=== PATIENT | female | born 1990 | race Caucasian/White ===

== ENCOUNTER 2023-11-06 15:39 | Outpatient (AMB) | payer OTHER, SELFPAY ==
--- NOTE | 2023-11-06 15:50 | A.OFFPC_ITS ---
Vital Signs 11/06/23 16:00 Height 5 ft 3.39 in Weight 256 lb 4 oz BMI 44.8 BP 128/70 Blood Pressure Location Rt brachial Position Sitting Pulse 116 H Pulse Source Pulse Oximeter Temp 98.1 F Temp Source Oral Pulse Oximetry (%) 98 Oxygen Delivery Method Room Air Intake Visit Reasons: Transfer from [facility]/ Intake Note: New patient visit. 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 Required: No Accompanied by: Father Is last menstrual period known: No Post menopausal: No Patient : No Tobacco use date assessed: 11/06/23 Dental Screening Dental Screen Date: 11/06/23 Did you have a dental visit in the last 12 months?: Yes Did you have a dental problem in the last 6 months where you did not have access to dental care?: No Was dental information given to patient?: Patient has dentist HPI HPI Comments History of Present Illness Details 33 year old female with a past medical h istory of cognitive impairment, depression, anxiety, insomnia, recurrent sinus issues, allergies [facility]: Her mother in 2022. This resulted in a great amount of ptsd, grief thereafter. Following with therapist at [facility], Felicita Hogan. Has not tolerated or had ineffective response to multiple psych medications. Currently on prozac 60mg, wellbutrin, trazodone, buspirone. Still having some issues with low motivation, depressive symptoms. Not currently following with a psychiatrist Patient notes chronic sinus congestion, post nasal drip, ear fullness. She is currently taking cetirizine daily. Sinus pressure increased over the past week. She follows with heat transfer technician. She is on OCP. She has a boyfriend who she is staying with frequently. Her stepfather accompanies her. [facility] Medical History (Updated 11/08/23 @ 11:06 by Lainey Hilton MD) Depression Panic attack GERD (gastroesophageal reflux disease) Headache Sinusitis Anxiety Surgical History (Updated 11/06/23 @ 16:10 by Suzanne Robert CMA) Hx of cholecystectomy Family History (Updated 11/06/23 @ 16:12 by Suzanne Robert CMA) Mother HTN (hypertension) Hypercholesteremia Father Hypercholesteremia Paternal Grandmother Hypercholesteremia Other Prediabetes Social History Housing: House Patient Tobacco Use Status: Never used Tobacco e-Cigarette/Vaping Use: Never Used Second Hand Smoke Exposure: No service: No Current occupational status: unemployed (Starting job 11/30/23 at the [employer] ) Cognitive needs: No Hearing needs: No Vision needs: Yes Questionnaire PHQ-9 Over the last 2 weeks, how often have you been bothered by any of the following problems? 1. Little interest or pleasure in doing things: more than half the days 2. Feeling down, depressed, or hopeless: several days 3. Trouble falling or staying asleep, or sleeping too much: several days 4. Feeling tired or having little energy: not at all 5. Poor appetite or overeating: not at all 6. Feeling bad about yourself - or that you are a failure or have let yourself or your family down: several days 7. Trouble concentrating on things, such as reading the newspaper or watching television: not at all 8. Moving or speaking so slowly that other people could have noticed. Or the opposite - being so fidgety or restless that you have been moving around a lot more than usual: not at all 9. Thoughts that you would be better off or of hurting yourself in some way: not at all Total score: 5 Depression Screening Interpretation: Positive Depression Screening Done: Yes 75962 - PHQ-9 Billing: Yes Source: Developed by Drs. Wilson Hernández, Tammy Sierra, João Shi and colleagues, with an educational antoine from [employer]. Thrive Questionnaire Date Thrive assessed: 11/06/23 I am a: Patient What is your living situation today?: I have a steady place to live Within the past 12 months, did the food you bought not last and you didn't have the money to get more?: Never true Within the past 12 months, did you worry whether your food would run out before you got money to buy more?: Never true Do you have trouble paying for medicines?: No Do you have trouble getting transportation to medical appointments?: No Do you have trouble paying your heating and electricity bill?: No Do you have trouble taking care of your child, family member or friend?: No Do you have trouble with day-to-day activities such as bathing, preparing meals, shopping, managing finances, etc.?: No Are you currently unemployed and looking for a job?: No Are you interested in more education?: No Please select the resources that you would like help with: None Currently or been in a relationship where the following occur: no concerns reported THRIVE Score: 0 AUDIT C Alcohol Use Questionnaire (AUDIT-C) 1. How often do you have a drink containing alcohol?: Monthly or less 2. How many drinks containing alcohol do you have on a typical day when you are drinking?: 1 or 2 3. How often do you have six or more drinks on one occasion?: Never Total Score: 1 CHIARA-7 AMB Questionnaire CHIARA-7 Date CHIARA - 7 assessed: 11/06/23 Feeling nervous, anxious, or on edge: 3 = Nearly every day Not being able to stop or control worryin = Several days Worrying too much about different things: 1 = Several days Trouble relaxin = Several days Being so restless that it is hard to sit still: 1 = Several days Becoming easily annoyed or irritable: 0 = Not at all Feeling afraid as if something awful might happen: 0 = Not at all Total CHIARA-7 score (0-4 normal; 5-9 mild; 10-14 moderate; 15-21 severe): 7 Source: Developed by Drs. Wilson Hernández, Tammy Sierra, João Shi and colleagues, with an educational antoine from [employer]. CHIARA-7 Assessment Billing CHIARA-7 Assessment Tool: CHIARA-7 Assessment 92420 Review of Systems Const Details: see HPI Physical exam (Primary Care) Vital Signs: Last Vital Signs Temp 98.1 F 11/06/23 16:00 Pulse 116 H 11/06/23 16:00 BP 128/70 11/06/23 16:00 Pulse Ox 98 11/06/23 16:00 Oxygen Delivery Method Room Air 11/06/23 16:00 PHYSICAL EXAM: GENERAL: Overweight, alert, oriented. EYES: EOMI. Anicteric. HENT: Moist mucous membranes. No scleral icterus. No cervical lymphadenopathy. LUNGS: Clear to auscultation bilaterally. CARDIOVASCULAR: Regular rate and rhythm. No murmur. No JVD. ABDOMEN: Soft, non-tender +bs EXTREMITIES: No edema. Non-tender. SKIN: No rashes or lesions. Warm. NEUROLOGIC: No focal neurological deficits. PSYCHIATRIC: Cooperative. Appropriate mood and affect BMI result Body Mass Index 44.8 Tobacco/Smoking Status: Tobacco use Status Tobacco use date assessed 11/06/23 11/06/23 16:03 Patient Tobacco Use Status Never used Tobacco 11/06/23 16:03 e-Cigarette/Vaping Use Never Used 11/06/23 16:03 PHQ-9: PHQ-9 Score PHQ-9: Total score 5 11/08/23 11:06 Depression Screening Interpretation: Positive Thrive Assessment: Date of Thrive Assessment Date Thrive assessed 11/06/23 11/06/23 16:14 Currently or been in a relationship where the following occur: no concerns reported Assessment and Plan Assessment & Plan (1) Anxiety: Comment: Depression & anxiety improved but not optimal. Will add abilify. Referral placed to psychiatry Code(s): F41.9 - Anxiety disorder, unspecified (2) Panic attack: Code(s): F41.0 - Panic disorder [episodic paroxysmal anxiety] (3) Depression: Code(s): F32.A - Depression, unspecified Qualifiers: Depression Type: unspecified Qualified Code(s): F32.A - Depression, unspecified Orders: Referrals Psychiatry Referral F32.A - Depression, unspecified, F41.0 - Panic disorder [episodic paroxysmal anxiety], F41.9 - Anxiety disorder, unspecified, R41.89 - Other symptoms and signs involving cognitive functions and awareness Medications: New azithromycin 500 mg PO DAILY 5 tabs 0RF 5 days aripiprazole (Abilify) 5 mg PO DAILY 90 tabs 3RF 90 days fluticasone propionate 50 mcg/actuation (Allergy Relief (fluticasone)) administer into each nostril 2 sprays intranasal DAILY 16 grams 3RF Coding Level of Care Code Tele Est Pt Level 5 (30397) Diagnoses Anxiety F41.9 Panic attack F41.0 Depression, unspecified depression type F32.A Depression Type: unspecified Additional Codes CHIARA-7 Assessment Billing - CHIARA-7 Assessment Tool: CHIARA-7 Assessment [id number] ([id number])
[2023-11-06 16:00] VITALS: BP 128/70; PULSE 116; TEMP 36.7; O2SAT 98; BMI 44.8
== END 2023-11-06 16:49 | disposition home or self-care (01) ==
PROVIDERS: PCP Internal Medicine; Visit Provider Internal Medicine
DX: F41.9 Anxiety disorder, unspecified (principal); F41.0 Panic disorder [episodic paroxysmal anxiety]; F32.A Depression, unspecified
CPT/HCPCS: 96127; 99214

== ENCOUNTER 2024-02-19 10:14 | Outpatient (AMB) | payer OTHER, SELFPAY ==
--- NOTE | 2024-02-19 10:16 | MHC.PC.OV ---
Vital Signs 02/19/24 10:20 Height 5 ft 3.39 in Weight 281 lb BMI 49.2 BP 108/62 Blood Pressure Location Lt brachial Position Sitting Respiration 12 Pulse 95 Pulse Source Pulse Oximeter Pulse Oximetry (%) 95 Oxygen Delivery Method Room Air Intake Visit Reasons: Follow up PE Intake Note: Patient is here for a follow up and is accompanied by her father. Patient has a concern for a small bite on her right foot. Patient has a small dog and has not been to any wooded areas. Patients father reports there is paperwork needed for DDS. Industrial Sales Representative Required: No Accompanied by: Self / Same As Patient Allergies No Known Allergies Allergy (Verified 02/19/24 10:26) Tobacco use date assessed: 11/06/23 Dental Screening Dental Screen Date: 11/06/23 HPI HPI Comments History of Present Illness Details 33 year old female with a past medical history of cognitive impairment, depression, anxiety, insomnia, recurrent sinus issues, allergies presenting for follow up : Her mother in 2022. This resulted in a great amount of ptsd, grief thereafter. Following with therapist at [facility], Felicita Hogan. Has not tolerated or had ineffective response to multiple psych medications. Currently on prozac 60mg, wellbutrin, trazodone, buspirone. Still having some issues with low motivation, depressive symptoms. 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 Her step father who has been taking care of her since her mother passed has paperwork for DDS. She follows with corporate meeting planner. She is on OCP. ROS CONSTITUTIONAL: Denies weight loss, fever and chills. HEENT: Denies changes in vision and hearing. RESPIRATORY: Denies SOB and cough. CV: Denies palpitations and CP GI: Denies abdominal pain, nausea, vomiting and diarrhea. : Denies dysuria and urinary frequency. MSK: Denies new myalgia and joint pain. SKIN: bug bite foot NEUROLOGICAL: Denies headache PSYCHIATRIC: Denies recent changes in mood. PHYSICAL EXAM: GENERAL: Alert and oriented x 3. NAD EYES: EOMI. Anicteric. HENT: Moist mucous membranes. No scleral icterus. No cervical lymphadenopathy. LUNGS: Clear to auscultation bilaterally. CARDIOVASCULAR: Regular rate and rhythm. No murmur. No JVD. ABDOMEN: Soft, non-tender +bs EXTREMITIES: No edema. Non-tender. SKIN: small insect bite without surrounding erythema or warmgth right foot. NEUROLOGIC: No focal neurological deficits. CN II-XII grossly intact PSYCHIATRIC: Cooperative. Appropriate mood and affect. [facility] Medical History (Updated 02/19/24 @ 13:12 by Lainey Hilton MD) Depression Panic attack GERD (gastroesophageal reflux disease) Headache Sinusitis Anxiety Surgical History (Updated 11/06/23 @ 16:10 by Suzanne Robert CMA) Hx of cholecystectomy Family History (Updated 11/06/23 @ 16:12 by Suzanne Robert CMA) Mother HTN (hypertension) Hypercholesteremia Father Hypercholesteremia Paternal Grandmother Hypercholesteremia Other Prediabetes Social History Housing: House Patient Tobacco Use Status: Never used Tobacco e-Cigarette/Vaping Use: Never Used Second Hand Smoke Exposure: No service: No Current occupational status: unemployed (Starting job 11/30/23 at the [employer] ) Cognitive needs: No Hearing needs: No Vision needs: Yes Questionnaire PHQ-9 Over the last 2 weeks, how often have you been bothered by any of the following problems? 1. Little interest or pleasure in doing things: not at all 2. Feeling down, depressed, or hopeless: more than half the days 3. Trouble falling or staying asleep, or sleeping too much: not at all 4. Feeling tired or having little energy: not at all 5. Poor appetite or overeating: not at all 6. Feeling bad about yourself - or that you are a failure or have let yourself or your family down: several days 7. Trouble concentrating on things, such as reading the newspaper or watching television: not at all 8. Moving or speaking so slowly that other people could have noticed. Or the opposite - being so fidgety or restless that you have been moving around a lot more than usual: not at all 9. Thoughts that you would be better off or of hurting yourself in some way: not at all Total score: 3 Depression Screening Interpretation: Negative (neg) Depression Screening Done: Yes Source: Developed by Drs. Wilson Hernández, Tammy Sierra, João Shi and colleagues, with an educational antoine from [employer]. Thrive Questionnaire Date Thrive assessed: 02/17/24 I am a: Patient What is your living situation today?: I have a steady place to live Within the past 12 months, did the food you bought not last and you didn't have the money to get more?: Never true Within the past 12 months, did you worry whether your food would run out before you got money to buy more?: Sometimes True Do you have trouble paying for medicines?: I choose not to answer this question Do you have trouble getting transportation to medical appointments?: No Do you have trouble paying your heating and electricity bill?: No Do you have trouble taking care of your child, family member or friend?: No Do you have trouble with day-to-day activities such as bathing, preparing meals, shopping, managing finances, etc.?: No Are you currently unemployed and looking for a job?: Yes Are you interested in more education?: No Please select the resources that you would like help with: Job search/training Currently or been in a relationship where the following occur: No concerns reported THRIVE Score: 1 AUDIT C Alcohol Use Questionnaire (AUDIT-C) 1. How often do you have a drink containing alcohol?: Never Total Score: 0 CHIARA-7 AMB Questionnaire CHIARA-7 Date CHIARA - 7 assessed: 11/06/23 Feeling nervous, anxious, or on edge: 1 = Several days Not being able to stop or control worryin = Several days Worrying too much about different things: 2 = More than half the days Trouble relaxin = Several days Being so restless that it is hard to sit still: 0 = Not at all Becoming easily annoyed or irritable: 0 = Not at all Feeling afraid as if something awful might happen: 0 = Not at all Total CHIARA-7 score (0-4 normal; 5-9 mild; 10-14 moderate; 15-21 severe): 5 Source: Developed by Drs. Wilson Hernández, Tammy Sierra, João Shi and colleagues, with an educational antoine from [employer]. Physical exam (Primary Care) Vital Signs: Last Vital Signs Pulse 95 02/19/24 10:20 Resp 12 02/19/24 10:20 BP 108/62 02/19/24 10:20 Pulse Ox 95 02/19/24 10:20 Oxygen Delivery Method Room Air 02/19/24 10:20 BMI result Body Mass Index 49.2 Tobacco/Smoking Status: Tobacco use Status Tobacco use date assessed 11/06/23 02/19/24 10:16 Patient Tobacco Use Status Never used Tobacco 02/19/24 10:16 e-Cigarette/Vaping Use Never Used 02/19/24 10:16 PHQ-9: PHQ-9 Score PHQ-9: Total score 3 02/19/24 13:08 Depression Screening Interpretation: Negative (neg) Thrive Assessment: Date of Thrive Assessment Date Thrive assessed 02/17/24 02/19/24 10:16 Currently or been in a relationship where the following occur: No concerns reported Assessment and Plan Assessment & Plan (1) Depression: Code(s): F32.A - Depression, unspecified Qualifiers: Depression Type: unspecified Qualified Code(s): F32.A - Depression, unspecified Plan: stable. managing with current medications (2) Anxiety: Code(s): F41.9 - Anxiety disorder, unspecified Plan: [facility] (3) Cognitive and neurobehavioral dysfunction: Code(s): F09 - Unspecified mental disorder due to known physiological condition Plan: Step dad managing financial affairs Paperwork completed for DDS Orders: Orders Lipid Panel Today F32.A - Depression, unspecified, F41.0 - Panic disorder [episodic paroxysmal anxiety], F41.9 - Anxiety disorder, unspecified, Z13.228 - Encounter for screening for other metabolic disorders TSH reflex Free T4 Today F32.A - Depression, unspecified, F41.0 - Panic disorder [episodic paroxysmal anxiety], F41.9 - Anxiety disorder, unspecified, Z13.228 - Encounter for screening for other metabolic disorders Complete Blood Count Auto Diff Today F32.A - Depression, unspecified, F41.0 - Panic disorder [episodic paroxysmal anxiety], F41.9 - Anxiety disorder, unspecified, Z13.228 - Encounter for screening for other metabolic disorders Comprehensive Met. Panel Today F32.A - Depression, unspecified, F41.0 - Panic disorder [episodic paroxysmal anxiety], F41.9 - Anxiety disorder, unspecified, Z13.228 - Encounter for screening for other metabolic disorders Hemoglobin A1c Today F32.A - Depression, unspecified, F41.0 - Panic disorder [episodic paroxysmal anxiety], F41.9 - Anxiety disorder, unspecified, Z13.228 - Encounter for screening for other metabolic disorders Coding Level of Care Code Est Pt Level 4 (79083) Complex EM visit Add On G2211 Diagnoses Depression, unspecified depression type F32.A Depression Type: unspecified Anxiety F41.9 Cognitive and neurobehavioral dysfunction F09
[2024-02-19 10:20] VITALS: BP 108/62; PULSE 95; RESP 12; O2SAT 95; BMI 49.2
== END 2024-02-19 11:14 | disposition home or self-care (01) ==
PROVIDERS: PCP Internal Medicine; Visit Provider Internal Medicine
DX: F32.A Depression, unspecified (principal); F41.9 Anxiety disorder, unspecified; F09 Unspecified mental disorder due to known physiological condition

== ENCOUNTER → 2024-02-19 10:14 | Outpatient (BNVA) | payer OTHER, SELFPAY | PROVIDERS: PCP Internal Medicine; Visit Provider Internal Medicine | DX: F32.A Depression, unspecified (principal); F41.9 Anxiety disorder, unspecified; F09 Unspecified mental disorder due to known physiological condition | CPT/HCPCS: 99212 ==

== ENCOUNTER 2024-02-19 11:24 | Outpatient (REF) | payer OTHER, SELFPAY ==
[2024-02-19 14:31] LABS: Estimated Average Glucose 103 mg/dL; Hemoglobin A1c % 5.2 % (<6.0)
[2024-02-19 14:32] LABS: Basophils Absolute Auto 0.1 X10*3/uL (0.0-0.2); Basophils Percent Auto 0.6 % (0-2); Eosinophils Absolute Auto 0.3 X10*3/uL (0.0-0.4); MANUAL DIFF FLAG SCAN; Monocytes Absolute Auto 0.7 X10*3/uL (0.1-1.2); PLT CLUMP 1; SCAN SMEAR FLAG 1
[2024-02-19 15:03] LABS: Alanine Aminotransferase 20 U/L (0-31); Alkaline Phosphatase 79 U/L (39-117); Anion Gap 14 (12-20); Aspartate Amino Transferase 20 U/L (5-31); Bilirubin Total 0.3 mg/dL (0.0-1.0); Blood Urea Nitrogen 12 mg/dL (9-16); Calcium 9.8 mg/dL (8.4-10.2); Carbon Dioxide 24 mmol/L (22-29); Chloride 102 mmol/L (96-108); Cholesterol 234 mg/dL (<200); Estimated Glomerular Filt Rate > 60; Glucose Random 89 mg/dL (60-115); HDL Cholesterol 67 mg/dL (>40); LDL Cholesterol Calculated 145 mg/dL (<100); Potassium 4.4 mmol/L (3.3-5.1); Sodium 136 mmol/L (135-145); TSH reflex Free T4 0.52 uIU/mL (0.32-4.0); Total Protein 7.8 g/dL (6.5-8.0); Triglycerides 113 mg/dL (<150)
[2024-02-19 16:09] LABS: Imm Gran Abs Auto 0.03 X10*3/uL (0.00-0.03); Imm Gran Pct Auto 0.3 % (0.0-0.4); Mean Platelet Volume 10.4 fL (9.4-12.3)
[2024-02-19 16:11] LABS: Eosinophils Percent Auto 2.4 % (0-4); Hematocrit 40.9 % (37.0-47.0); Lymphocytes Absolute Auto 3.3 X10*3/uL (1.2-4.9); Lymphocytes Percent Auto 27.5 % (20-40); Mean Corpuscular HGB Conc 31.8 g/dl (31.0-35.0); Mean Corpuscular Hemoglobin 26.5 pg (27.0-33.0); Mean Corpuscular Volume 83.5 fL (80.0-98.0); Monocytes Percent Auto 6.1 % (2-11); Neutrophils Absolute Auto 7.5 x10*3/uL (2.0-8.3); Neutrophils Percent Auto 63.1 % (45-73); Platelet Count 354 X10*3/uL (160-400); Red Cell Distribution Width 13.8 % (11.0-16.0); White Blood Count 11.9 X10*3/uL (4.8-10.8)
[2024-02-19 16:14] LABS: SLIDE REVIEW VERIFIED
== END 2024-02-19 11:25 | disposition home or self-care (01) ==
LOC: HO.WFDLDS 11:24
PROVIDERS: Visit Provider Internal Medicine
DX: F41.9 Anxiety disorder, unspecified (principal); F32.A Depression, unspecified; F41.0 Panic disorder [episodic paroxysmal anxiety]; Z13.228 Encounter for screening for other metabolic disorders; Z13.1 Encounter for screening for diabetes mellitus
CPT/HCPCS: 36415; 80053; 80061; 83036; 84443; 85025

== ENCOUNTER 2024-09-27 15:04 | Outpatient (AMB) | payer OTHER, SELFPAY ==
--- NOTE | 2024-09-27 15:40 | MHC.PC.OV ---
Vital Signs 09/27/24 15:41 Height 5 ft 3.39 in Weight 313 lb 9 oz BMI 54.9 BP 112/76 Blood Pressure Location Rt brachial Position Sitting Respiration 16 Pulse 88 Pulse Source Pulse Oximeter Pulse Oximetry (%) 97 Oxygen Delivery Method Room Air Intake Visit Reasons: Med review f/u Intake Note: Medication follow up Allergies No Known Allergies Allergy (Verified 09/27/24 15:42) Tobacco use date assessed: 09/27/24 Dental Screening Dental Screen Date: 09/27/24 Did you have a dental visit in the last 12 months?: Yes Did you have a dental problem in the last 6 months where you did not have access to dental care?: No Was dental information given to patient?: Patient has dentist HPI HPI Comments History of Present Illness Details 33 year old female with a past medical history of cognitive impairment, depression, anxiety, insomnia, recurrent sinus issues, allergies presenting for follow up BH: Her mother in 2022. This resulted in a great amount of ptsd, grief thereafter. Following with therapist at [facility], Felicita Hogan. Reports stable on current medications. Has not tolerated or had ineffective response to multiple psych medications. She moved back from [place] where she was living with her boyfriend and his 15 year old son. Her step father who has been taking care of her since her mother passed has paperwork for DDS. She follows with breakfast host. She is on OCP. ROS CONSTITUTIONAL: Denies weight loss, fever and chills. HEENT: Denies changes in vision and hearing. RESPIRATORY: Denies SOB and cough. CV: Denies palpitations and CP GI: Denies abdominal pain, nausea, vomiting and diarrhea. : Denies dysuria and urinary frequency. MSK: Denies new myalgia and joint pain. SKIN: bug bite foot NEUROLOGICAL: Denies headache PSYCHIATRIC: Denies recent changes in mood. PHYSICAL EXAM: GENERAL: Alert and oriented x 3. NAD EYES: EOMI. Anicteric. HENT: Moist mucous membranes. No scleral icterus. No cervical lymphadenopathy. LUNGS: Clear to auscultation bilaterally. CARDIOVASCULAR: Regular rate and rhythm. No murmur. No JVD. ABDOMEN: Soft, non-tender +bs EXTREMITIES: No edema. Non-tender. SKIN: small insect bite without surrounding erythema or warmgth right foot. NEUROLOGIC: No focal neurological deficits. CN II-XII grossly intact PSYCHIATRIC: Cooperative. Appropriate mood and affect. [facility] Medical History Depression Panic attack GERD (gastroesophageal reflux disease) Headache Sinusitis Anxiety Surgical History Hx of cholecystectomy Family History Mother HTN (hypertension) Hypercholesteremia Father Hypercholesteremia Paternal Grandmother Hypercholesteremia Other Prediabetes Social History Housing: House Alcohol intake: current Patient Tobacco Use Status: Never used Tobacco e-Cigarette/Vaping Use: Never Used Second Hand Smoke Exposure: No service: No Current occupational status: unemployed Cognitive needs: No Hearing needs: No Vision needs: Yes Questionnaire PHQ-9 Over the last 2 weeks, how often have you been bothered by any of the following problems? 1. Little interest or pleasure in doing things: more than half the days 2. Feeling down, depressed, or hopeless: several days 3. Trouble falling or staying asleep, or sleeping too much: not at all 4. Feeling tired or having little energy: not at all 5. Poor appetite or overeating: not at all 6. Feeling bad about yourself - or that you are a failure or have let yourself or your family down: not at all 7. Trouble concentrating on things, such as reading the newspaper or watching television: not at all 8. Moving or speaking so slowly that other people could have noticed. Or the opposite - being so fidgety or restless that you have been moving around a lot more than usual: not at all 9. Thoughts that you would be better off or of hurting yourself in some way: not at all Total score: 3 Depression Screening Interpretation: Negative Depression Screening Done: Yes 53726 - PHQ-9 Billing: Yes Source: Developed by Drs. Wilson Hernández, Tammy Sierra, João Shi and colleagues, with an educational antoine from [employer]. Thrive Questionnaire Date Thrive assessed: 09/27/24 I am a: Patient What is your living situation today?: I have a steady place to live Within the past 12 months, did the food you bought not last and you didn't have the money to get more?: I choose not to answer this question Within the past 12 months, did you worry whether your food would run out before you got money to buy more?: Often true Do you have trouble paying for medicines?: No Do you have trouble getting transportation to medical appointments?: I choose not to answer this question Do you have trouble paying your heating and electricity bill?: No Do you have trouble taking care of your child, family member or friend?: No Do you have trouble with day-to-day activities such as bathing, preparing meals, shopping, managing finances, etc.?: No Are you currently unemployed and looking for a job?: Yes Are you interested in more education?: No Please select the resources that you would like help with: Job search/training Currently or been in a relationship where the following occur: No concerns reported THRIVE Score: 1 AUDIT C Alcohol Use Questionnaire (AUDIT-C) 1. How often do you have a drink containing alcohol?: Monthly or less 2. How many drinks containing alcohol do you have on a typical day when you are drinking?: 1 or 2 3. How often do you have six or more drinks on one occasion?: Never Total Score: 1 CHIARA-7 AMB Questionnaire CHIARA-7 Date CHIARA - 7 assessed: 09/27/24 Feeling nervous, anxious, or on edge: 0 = Not at all Not being able to stop or control worryin = Not at all Worrying too much about different things: 0 = Not at all Trouble relaxin = Not at all Being so restless that it is hard to sit still: 0 = Not at all Becoming easily annoyed or irritable: 0 = Not at all Feeling afraid as if something awful might happen: 0 = Not at all Total CHIARA-7 score (0-4 normal; 5-9 mild; 10-14 moderate; 15-21 severe): 0 Source: Developed by Drs. Wilson Hernández, Tammy Sierra, João Shi and colleagues, with an educational antoine from [employer]. CHIARA-7 Assessment Billing CHIARA-7 Assessment Tool: CHIARA-7 Assessment 36582 Physical exam (Primary Care) Vital Signs: Last Vital Signs Pulse 88 09/27/24 15:41 Resp 16 09/27/24 15:41 BP 112/76 09/27/24 15:41 Pulse Ox 97 09/27/24 15:41 Oxygen Delivery Method Room Air 09/27/24 15:41 BMI result Body Mass Index 54.9 Tobacco/Smoking Status: Tobacco use Status Tobacco use date assessed 09/27/24 09/27/24 15:47 Patient Tobacco Use Status Never used Tobacco 09/27/24 15:48 e-Cigarette/Vaping Use Never Used 09/27/24 15:48 PHQ-9: PHQ-9 Score PHQ-9: Total score 3 09/27/24 15:47 Depression Screening Interpretation: Negative Thrive Assessment: Date of Thrive Assessment Date Thrive assessed 09/27/24 09/27/24 15:47 Currently or been in a relationship where the following occur: No concerns reported Coding Level of Care Code Est Pt Level 3 (84396) Complex EM visit Add On G2211 Diagnoses Cognitive and neurobehavioral dysfunction F09 Anxiety F41.9 Depression, unspecified depression type F32.A Depression Type: unspecified Additional Codes CHIARA-7 Assessment Billing - CHIARA-7 Assessment Tool: CHIARA-7 Assessment 42114 ([id number]) PHQ-9 - 63409 - PHQ-9 Billing: Yes ([id number]) Assessment & Plan Assessment & Plan (1) Cognitive and neurobehavioral dysfunction: Code(s): F09 - Unspecified mental disorder due to known physiological condition Category: Medical (2) Anxiety: Code(s): F41.9 - Anxiety disorder, unspecified Category: Medical (3) Depression: Code(s): F32.A - Depression, unspecified Category: Medical Qualifiers: Depression Type: unspecified Qualified Code(s): F32.A - Depression, unspecified Plan Chronic medical conditions including anxiety, depression and insomnia are stable Her blood pressure is well controlled. She is obese and has gained more weight since last visit. Efforts toward weight loss including exercise and dietary modification Allergies-stable. no recent sinus infections Orders: Orders Hemoglobin A1c 6 Months F09 - Unspecified mental disorder due to known physiological condition, F32.A - Depression, unspecified, F41.9 - Anxiety disorder, unspecified Lipid Panel 6 Months F09 - Unspecified mental disorder due to known physiological condition, F32.A - Depression, unspecified, F41.9 - Anxiety disorder, unspecified Complete Blood Count Auto Diff 6 Months F09 - Unspecified mental disorder due to known physiological condition, F32.A - Depression, unspecified, F41.9 - Anxiety disorder, unspecified Comprehensive Met. Panel 6 Months F09 - Unspecified mental disorder due to known physiological condition, F32.A - Depression, unspecified, F41.9 - Anxiety disorder, unspecified TSH reflex Free T4 6 Months F09 - Unspecified mental disorder due to known physiological condition, F32.A - Depression, unspecified, F41.9 - Anxiety disorder, unspecified
[2024-09-27 15:41] VITALS: BP 112/76; PULSE 88; RESP 16; O2SAT 97; BMI 54.9
== END 2024-09-27 15:58 | disposition home or self-care (01) ==
LOC: HO.HMCFM 15:04
PROVIDERS: PCP Internal Medicine; Visit Provider Internal Medicine
DX: F09 Unspecified mental disorder due to known physiological condition (principal); F41.9 Anxiety disorder, unspecified; F32.A Depression, unspecified

== ENCOUNTER → 2024-09-27 15:04 | Outpatient (BNVA) | payer OTHER, SELFPAY | PROVIDERS: PCP Internal Medicine; Visit Provider Internal Medicine | DX: F41.9 Anxiety disorder, unspecified (principal); F32.A Depression, unspecified | CPT/HCPCS: 96127; 99212 ==

== ENCOUNTER 2025-03-27 10:07 | Outpatient (REF) | payer OTHER, SELFPAY ==
--- OUTSIDE RECORDS SUMMARY | 2025-03-27 14:10 | XMS_ITS | Data Portability ---
Author Organization [place] - [facility], Allergy Address [address] [address] Assessment Encounter Date Assessment Date Assessment LastModified by Organization Details LastModified Time 02/28/2025 02/28/2025 Visit With: Abril West RN Use of Antihistamines: No If yes: Vial Test Change in medications: No If yes Increase in asthma symptoms No Asthma Hx If yes, inhaler use: Reaction to last injections: No If yes: Allergy Symptoms: Other: Missed: Dose Aware of Vial Test Aware: Notes: [email or web address] Not available 02/28/2025 14:39:36 03/08/2025 03/08/2025 Visit With: REBECCA Mcneal Use of Antihistamines: No If yes: Vial Test Change in medications: No If yes Increase in asthma symptoms If yes, inhaler use: Reaction to last injections: No If yes: Allergy Symptoms: Other: Missed: Dose Aware of Vial Test Aware: Notes: [email or web address] Not available 03/08/2025 14:04:57 03/14/2025 03/14/2025 Visit With: Maude Orellana [place] Use of Antihistamines: No If yes: Vial Test Change in medications: No If yes Increase in asthma symptoms If yes, inhaler use: Reaction to last injections: No If yes: Allergy Symptoms: Other: Missed: Dose Aware of Vial Test Aware: Notes: [email or web address] Not available 03/14/2025 15:14:50 03/21/2025 03/21/2025 Visit With: REBECCA Mcneal Use of Antihistamines: No If yes: Vial Test Change in medications: No If yes Increase in asthma symptoms If yes, inhaler use: Reaction to last injections: Yes If yes: itchy Allergy Symptoms: Other: Missed: Dose Aware of Vial Test Aware: Notes: Not available 03/21/2025 15:38:06 03/24/2025 03/24/2025 Emily Clancy is a 34-year-old female with ongoing allergic symptoms, primarily sneezing. The patient is advised to continue her weekly allergy injections and will be notified when she can transition to every other week. She is instructed to use loratadine as needed for sneezing, which she has available at home. No prescription is required at this time. FOLLOW-UP: The patient will continue her allergy injection schedule and will be informed of any changes by the clinic staff. [email or web address] Not available 03/24/2025 10:53:17 Plan of Treatment Reminders Order Date Submit Date Provider Last Modified By Organization Details Last Modified Time Details Appointments [facility]- Allergy f-up 6mon 2025 11:30A M LOUISE SARKAR MD Not available Not available Not available Lab None recorded . Referral None recorded . Procedures None recorded . Surgeries None recorded . Imaging None recorded . Medication Orders None recorded . Patient TargetsNo targets recorded. Patient Instructions Encounter Date Encounter Id Patient Instructions Last Modified By Organization Details Last Modified Time 03/24/2025 [id number] - Continue weekly allergy injections. - Use loratadine as needed for sneezing. [email or web address] Not available 03/24/2025 10:53:17 Please note: Parts of this encounter note have been generated by AI based on audio conversation. Patient consent was required prior to utilizing this technology. Content review was required prior to finalizing the note. [email or web address] Not available 03/24/2025 10:53:17 Reason for Referral None Reported. Problems Name Problem SNOMED Code Status Onset Date Resolution Date Notes Provider Name and Address Organization Details Recorded Time Morbid obesity 027634732 Active 024 LOUISE SARKAR MD [address] [place] [address], [address] [place] [address] - [facility] 10:37:36 Deviated nasal septum 119737460 Active 024 LOUISE SARKAR MD [address], [place], [address], [facility] - [facility] [place] 4 10:37:43 Allergic rhinitis 05817017 Active 024 LOUISE SARKAR MD [address], [place], [address], [facility] - [facility] [place] 4 10:37:49 Pain in face 04153890 Active 024 LOUISE SARKAR MD [address], [place], [address], [facility] - [facility] [place] 4 10:38:46 Perennial allergic rhinitis 670480759 Active 024 CRISSY MCHUGH [facility] [address], [place], [address], [facility] - [facility] 5 15:14:10 Nasal mucosa dry 56442568 Active 025 LOUISE SARKAR MD [address] [facility] [address], [place], [address], [facility] - [facility] 5 10:10:37 Problem Notes None recorded. Procedures Surgical History Date Name Laterality Status Provider Name and Address Organization Details Recorded Time 03/21/20 25 Allergy Immunotherapy Injections completed REBECCA SARKAR 100 [facility],[address], [address], [facility] - [facility] 03/21/2025 15:37:42 03/14/20 25 Allergy Immunotherapy Injections completed CRISSY MCHUGH [facility] [address] [facility] [address] [place] [address], [address], [facility] - [facility] 03/14/2025 15:14:30 03/08/20 25 Allergy Immunotherapy Injections completed CRISSY MCHUGH [facility] [address] [facility] [place] [address] [place] [address], [address], [facility] - [facility] 03/08/2025 14:04:52 02/29/20 25 Allergy Immunotherapy Injections completed ABRIL WEST RN [address], [place], [address], [place] [facility] 02/28/2025 14:40:12 02/22/20 25 Allergy Immunotherapy Injections completed KRISTEL MCNEALA [address], [place], [address], [place] [facility] 02/21/2025 15:47:53 02/15/20 25 Allergy Immunotherapy Injections completed Maude Orellana [address], [place], [address], [place] [facility] 02/14/2025 13:39:14 02/08/20 25 Allergy Immunotherapy Injections completed REBECCA SARKAR [address], [place], [address], [place] [facility] 02/07/2025 15:30:03 02/01/20 25 Allergy Immunotherapy Injections completed ABRIL WEST RN [address], [place], [address], [place] [facility] 01/31/2025 13:40:25 01/25/20 25 Allergy Immunotherapy Injections completed CRISSY MCHUGH Carla [address] [place] [address], [address], [place] [facility] 01/24/2025 13:23:18 01/19/20 25 Allergy Immunotherapy Injections completed CRISSY MCHUGH Carla [address], [place], [address], [place] [facility] 01/18/2025 14:32:21 01/13/20 25 Allergy Immunotherapy Injections active Maude Orellana [address], [place], [address], [place] [facility] 01/12/2025 14:51:09 01/04/20 25 Allergy Immunotherapy Injections completed REBECCA SARKAR [address], [place], [address], [place] [facility] 01/03/2025 15:20:01 12/28/19 25 Allergy Immunotherapy Injections completed CRISSY MCHUGH, RMA [address], [place], [address], [place] [facility] 12/27/2024 10:41:32 12/21/19 25 Allergy Immunotherapy Injections completed ABRIL WEST RN [address], [place], [address], [place] [facility] 12/20/2024 14:04:55 12/14/19 25 Allergy Immunotherapy Injections completed ABRIL WEST RN [address], [place], [address], [place] [facility] 12/13/2024 14:11:51 12/07/19 25 Allergy Immunotherapy Injections completed ABRIL WEST RN [address], [place], [address], [place] [facility] 12/06/2024 13:46:12 11/30/19 25 Allergy Immunotherapy Injections completed ABRIL WEST RN [address], [place], [address], [place] [facility] 11/29/2024 14:00:30 11/23/19 25 Allergy Immunotherapy Injections completed CRISSY MCHUGH, REBECCA [address], [place], [address], [place] [facility] 11/22/2024 14:33:24 11/16/19 25 Allergy Immunotherapy Injections completed REBECCA MCNEAL [address], [place], [address], [place] [facility] 11/15/2024 14:31:47 11/09/19 25 Allergy Immunotherapy Injections completed REBECCA SARKAR [address], [place], [address], [place] [facility] 11/08/2024 14:00:00 11/02/19 25 Allergy Immunotherapy Injections completed ABRIL WEST RN [address], [place], [address], [place] [facility] 11/01/2024 14:20:43 10/26/19 25 Allergy Immunotherapy Injections completed ABRIL WEST RN [address], [place], [address], [place] [facility] 10/25/2024 15:22:03 10/19/19 25 Allergy Immunotherapy Injections completed REBECCA SARKAR [address], [place], [address], [place] [facility] 10/18/2024 12:09:55 10/12/19 25 Allergy Immunotherapy Injections completed CRISSY MCHUGH RMCarla [address], [place], [address], [place] [facility] 10/11/2024 14:19:45 10/05/19 25 Allergy Immunotherapy Injections completed ABRIL WEST RN [address], [place], [address], [place] [facility] 10/04/2024 12:14:45 09/28/19 25 Allergy Immunotherapy Injections completed CRISSY MCHUGH RMCarla [address], [place], [address], [place] [facility] 09/27/2024 14:39:23 09/21/19 25 Allergy Immunotherapy Injections completed REBECCA SARKAR [address], [place], [address], [place] [facility] 09/20/2024 14:23:32 09/14/19 25 Allergy Immunotherapy Injections completed REBECCA SARKAR [address], [place], [address], [place] [facility] 09/13/2024 14:01:28 09/07/19 25 Allergy Immunotherapy Injections completed ABRIL WEST RN [address], [place], [address], [place] [facility] 09/06/2024 14:30:46 08/31/19 25 Allergy Immunotherapy Injections completed REBECCA SARKAR [address], [place], [address], [place] [facility] 08/30/2024 15:04:45 08/24/19 25 Allergy Immunotherapy Injections completed ABRIL WEST RN [address] [place] [address], [address], [place] [facility] 08/23/2024 15:21:12 08/17/19 25 Allergy Immunotherapy Injections completed REBECCA SARKAR [address], [place], [address], [place] [facility] 08/16/2024 14:57:38 08/10/19 25 Allergy Immunotherapy Injections completed REBECCA SARKAR [address], [place], [address], [place] [facility] 08/09/2024 14:04:23 08/03/19 25 Allergy Immunotherapy Injections completed ABRIL WEST RN [address] [place] [address], [address], [place] [facility] 08/02/2024 13:19:03 07/26/19 25 Allergy Immunotherapy Injections completed REBECCA SARKAR [address], [place], [address], [place] [facility] 07/26/2024 13:19:38 07/19/19 25 Allergy Immunotherapy Injections completed ABRIL WEST RN [address] [place] [address], [address], [place] [facility] 07/19/2024 14:38:48 07/12/19 25 Allergy Immunotherapy Injections completed REBECCA SARKAR [address], [place], [address], [place] [facility] 07/12/2024 11:51:11 07/05/19 25 Allergy Immunotherapy Injections completed REBECCA SARKAR [address], [place], [address], [place] [facility] 07/05/2024 13:59:13 06/28/19 25 Allergy Immunotherapy Injections completed REBECCA SARKAR [address], [place], [address], [place] [facility] 06/28/2024 12:00:44 06/21/19 25 Allergy Immunotherapy Injections completed CRISSY MCHUGH RMA [address], [place], [address], [place] [facility] 06/21/2024 13:05:36 06/14/19 25 Allergy Immunotherapy Injections completed TAWANA LUX RMA [address], [place], [address], [place] [facility] 06/14/2024 13:04:05 06/07/19 25 Allergy Immunotherapy Injections completed TAWANA LUX RMA [address], [place], [address], [place] [facility] 06/07/2024 13:55:02 05/31/20 24 Allergy Immunotherapy Injections completed TAWANA LUX RMA [address], [place], [address], [place] [facility] 05/31/2024 11:53:26 05/24/20 24 Allergy Immunotherapy Injections completed TAWANA LUX RMA [address], [place], [address], [place] [facility] 05/24/2024 12:01:50 05/17/20 24 Allergy Immunotherapy Injections completed TAWANA LUX RMA [address], [place], [address], [place] [facility] 05/17/2024 12:05:14 05/10/20 24 Allergy Immunotherapy Injections completed KRISTEL SARKARA [address], [place], [address], [place] [facility] 05/10/2024 13:56:16 05/03/20 24 Allergy Immunotherapy Injections completed ABRIL WEST RN [address], [place], [address], [place] [facility] 05/03/2024 12:08:20 04/26/20 24 Allergy Immunotherapy Injections completed TAWANA LUX RMA [address], [place], [address], [place] [facility] 04/26/2024 13:30:43 04/19/20 Allergy Immunotherapy Injections completed TAWANA LUX, RMA [address], [place], [address], [facility] - [facility] 04/19/2024 13:36:05 04/13/20 Allergy Immunotherapy Injections completed TAWANAHANY LUX, RMA [address], [place], [address], [facility] - [facility] 04/13/2024 11:41:37 04/05/20 Allergy Immunotherapy Injections completed CRISSY MCHUGH, RMA [address], [place], [address], [place] [facility] 04/05/2024 11:38:45 03/28/20 Allergy Immunotherapy Injections completed ABRIL WEST RN [address] [address], [place], [address], [facility] - [facility] 03/28/2024 10:43:37 03/01/20 Allergy Testing-Full completed TAWANA LUX, RMA [address], [place], [address], [facility] - [facility] 03/01/2024 11:37:17 cholecystectomy completed Crystal Ordaz [facility] 09/21/2024 09:45:43 Imaging Results None recorded. Procedure Notes None recorded. Medical Equipment None Reported. Allergies Allergen ID Allergen Name Allergen Category Reaction Reaction Severity Criticality Documentation Date Start Date Code Code System Note Provider Name and Address Organization Details Recorded Time 146428 oxycodone medicatio n Not available Not available Not available 03/24/2025 7804 RxNorm Crystal chacon [facility] 10:36:57 Medications Name Sig Start Date Stop Date Status Note LastModified by Organization Details LastModified Time fluoxetine 40 mg capsule 03/24 completed Not Available Not Available Not Available clonidine HCl 0.1 mg tablet 03/24 completed Not Available Not Available Not Available fluconazole 150 mg tablet 09/21 completed Not Available Not Available Not Available omeprazole 40 mg capsule,del ayed release 09/21 completed Not Available Not Available Not Available bupropion HCl SR 100 mg tablet,12 hr sustained-r elease 03/01 completed Not Available Not Available Not Available nortriptyli ne 25 mg capsule 03/24 completed Not Available Not Available Not Available trazodone 100 mg tablet 03/24 completed Not Available Not Available Not Available trazodone 150 mg tablet 09/21 completed Not Available Not Available Not Available lorazepam 1 mg tablet 2024 active Not Available Not Available Not Avai lable azelastine 137 mcg (0.1 %) nasal spray 09/21 completed Not Available Not Available Not Available epinephrine 0.3 mg/0.3 mL injection, auto-inject or Take 1 auto by injection route for 180 days, for anaphylax is. active Not Available Not Available No t Available ibuprofen 600 mg tablet 03/24 completed Not Available Not Available Not Available fluoxetine 20 mg capsule 09/21 completed Not Available Not Available Not Available fluticasone propionate 50 mcg/actuati on nasal spray,suspe nsion active Not Available Not Available Not Available loratadine 10 mg tablet Take 1 tablet every day by oral route. 2024 active Not Available Not Available Not Avai lable amoxicillin 875 mg-potassiu m clavulanate 125 mg tablet 03/01 completed Not Available Not Available Not Available azithromyci n 500 mg tablet 09/21 completed Not Available Not Available Not Available aripiprazol e 10 mg tablet 09/21 completed Not Available Not Available Not Available aripiprazol e 15 mg tablet 03/24 completed Not Available Not Available Not Available aripiprazol e 5 mg tablet 09/21 completed Not Available Not Available Not Available bupropion HCl XL 300 mg 24 hr tablet, extended release 03/24 completed Not Available Not Available Not Available bupropion HCl XL 150 mg 24 hr tablet, extended release 09/21 completed Not Available Not Available Not Available fluoxetine 60 mg tablet 09/21 completed Not Available Not Available Not Available Xulane 150 mcg-35 mcg/24 hr transdermal patch 09/21 completed Not Available Not Available Not Available Rexulti 0.5 mg tablet 03/24 completed Not Available Not Available Not Available Vitals None Recorded Social History Question Answer Notes LastModified by Organizat ion Details LastModified Time Tobacco Smoking Status Never Smoker Crystal chacon [place] - [facility] 09/21/2024 09:46:04 What Type Of Pension Administrator Do You Use? None [email or web address] Information not available 03/24/2025 Do You Have Any Pets? No [email or web address] Information not available 03/24/2025 Are You Passively Exposed To Smoke? No [email or web address] Information not available 03/24/2025 Are There Any Smokers In Your House? Yes [email or web address] Information not available 03/24/2025 Sex: Unknown Functional Status Question Answer Note LastModified by Organization Details LastModified Time Do you use any illicit or recreational drugs? No [email or web address] Information not available 03/24/2025 Do you or have you ever used any other forms of tobacco or nicotine? No [email or web address] Information not available 03/24/2025 What is your level of alcohol consumption? None [email or web address] Information not available 03/24/2025 What type of noise exposure are you exposed to? [email or web address] Infor mation not available 03/24/2025 Mental Status None recorded. Family History Nothing Reported. Medical History Condition Response Allergies/Hayfever N Heart Problems N Anxiety Y Tonsil Infections N Emphysema N Migraines Y Thyroid Problems N Glaucoma N Depression Y COPD N Developmental Delay N Nasal or Sinus Problems Y Anemia N Immune System Disorder N Anesthesia Complications N Heart Attack ([place]) N Other Skin Condition N Diabetes N Rhinitis N Bleeding Disorder N Food Allergy N Arthritis N Hearing Loss N Hyperlipidemia N Cancer N Stroke N Dementia N Nasal polyps N Asthma N Sleep Disorder N GERD/Reflux N High Cholesterol N Liver Disease N Headaches Y Fibromyalgia N Hypertension N Speech Delay N Kidney Disease N Gynecological HistoryNo gynecological history recorded. Obstetrics History GPAL:G 0 P 0 0 0 0 Past Encounters Encounter ID Performer Location Encounter Start Date Encounter Closed Date Diagnosis/Indication Diagnosis SNOMED-CT Code Diagnosis ICD10 Code Diagnosis IMO Codes Diagnosis Note [id number] LOUISE SANTANA MD [facility] 100 [facility] [place] [address] 02/29/2024 10:12:27 02/29/2024 10:48:31 Morbid obesity 122512109 E66.01 Deviated nasal septum 12 0139349 J34.2 Allergic rhinitis 413086 04 J30.9 Pain in face 10095046 R5 1.9 [id number] TAWANA LUX [facility] Allergy [address] [place] [address],[facility] [address] [place] [address] 03/01/2024 10:22:56 03/01/2024 11:41:03 Allergic rhinitis 07670732 J30.9 LOUISE SANTANA MD [facility] [address] [place] [address] 03/11/2024 14:01:09 03/11/2024 15:04:11 Allergic rhinitis 87826333 J30.89 reviewed with patient and father We also discussed the role of immunother apy. I explained that this is instituted for the most significan t of allergies and involves the introducti on of increasing ly graduated dosages of the appropriat e allergens by subcutaneo us injection to facilitate tolerance. I explained about the likelihood of some improvemen t usually within a three to six month time period provided that the patient is compliant with therapy. It may take substantia lly longer for patients with severe allergy. We spoke about the duration of therapy, which typically lasts from three to five years though at times can be indefinite . We also discussed the risk of anaphylaxi s with therapy. Use of an Epipen discussed. [id number] ABRIL WEST RN Allergy [address] [place] [address] [address] [place] [address] 03/28/2024 10:24:51 03/28/2024 10:44:43 Perennial allergic rhinitis 665153523 J30.89 [id number] CRISSY MCHUGH [facility] Allergy [address] [place] [address],[facility] [address] [place] [address] 04/05/2024 11:11:36 04/05/2024 12:04:53 Perennial allergic rhinitis 354134151 J30.89 [id number] TAWANA LUX [facility] Allergy [address] [place] [address],[facility] [address] [place] [address] 04/13/2024 11:35:37 04/13/2024 13:17:38 Perennial allergic rhinitis 243823206 J30.89 [id number] CRISSY GRIFFIN, RMA Allergy [address] [place] [address],[place] [address] [place] [address] 04/19/2024 12:47:43 04/19/2024 13:58:13 Perennial allergic rhinitis 020885831 J30.89 [id number] TAWANA LUX [facility] Allergy [address] [place] [address],[place] [address] [place] [address] 04/26/2024 12:46:29 04/26/2024 13:31:08 Perennial allergic rhinitis 775359900 J30.89 [id number] ABRIL WEST RN Allergy [address] [place] [address] [address] [place] [address] 05/03/2024 11:43:34 05/03/2024 12:08:54 Perennial allergic rhinitis 324033387 J30.89 [id number] TAWANA LUX [facility] Allergy [address] [place] [address], [address] [place] [address] 05/10/2024 13:32:41 05/10/2024 14:08:00 Perennial allergic rhinitis 552947152 J30.89 [id number] TAWANA LUX [facility] Allergy [address] [place] [address], [address] [place] [address] 05/17/2024 12:04:08 05/17/2024 12:05:30 Perennial allergic rhinitis 205363910 J30.89 [id number] ABRIL WEST RN Allergy [address] [place] [address], [address] [place] [address] 05/24/2024 11:32:58 05/24/2024 12:02:37 Perennial allergic rhinitis 032466212 J30.89 [id number] TAWANA LUX [facility] Allergy [address] [place] [address],[place] [address] [place] [address] 05/31/2024 11:38:54 05/31/2024 12:05:33 Perennial allergic rhinitis [id number] J30.89 [id number] TAWANA LUX [facility] [address] [place] [address],[place] [address] [place] [address] 06/07/2024 12:57:33 06/07/2024 13:56:04 Perennial allergic rhinitis [id number] J30.89 [id number] TAWANA LUX [facility] [address] [place] [address],[place] [address] [place] [address] 06/14/2024 12:51:27 06/14/2024 13:57:07 Perennial allergic rhinitis [id number] J30.89 [id number] CRISSY GABY, [facility] [address] [place] [address],[place] [address] [place] [address] 06/21/2024 12:49:39 06/21/2024 13:06:03 Perennial allergic rhinitis [id number] J30.89 [id number] TAWANA LUX, [facility] [address] [place] [address],[place] [address] [place] [address] 06/28/2024 11:28:50 06/28/2024 12:01:13 Perennial allergic rhinitis [id number] J30.89 [id number] TAWANA LUX [facility] [address] [place] [address], [address] [place] [address] 07/05/2024 13:31:18 07/05/2024 14:02:26 Perennial allergic rhinitis [id number] J30.89 [id number] TAWANA LUX, [facility] [address] [place] [address],[place] [address] [place] [address] 9 07/12/2024 11:38:05 07/12/2024 11:58:45 Perennial allergic rhinitis [id number] J30.89 08361 ABRIL WEST RN [facility] [address] [place] [address],[place] [address] [place] [address] 07/19/2024 13:43:40 07/19/2024 14:39:35 Perennial allergic rhinitis [id number] J30.89 Allergic rhinitis 853455 04 J30.89 23502 TAWANA LUX, [facility] [address] [place] [address],[place] [address] [place] [address] 07/26/2024 13:00:24 07/26/2024 13:21:33 Perennial allergic rhinitis [id number] J30.89 69312 ABRIL WEST RN [facility] [address] [place] [address],[place] [address] [place] [address] 08/02/2024 13:07:41 08/02/2024 13:19:40 Perennial allergic rhinitis [id number] J30.89 Allergic rhinitis 805409 04 J30.89 72459 TAWANA LUX A [facility] [address] [place] [address],[place] [address] [place] [address] 08/09/2024 13:36:26 08/09/2024 14:07:49 Perennial allergic rhinitis [id number] J30.[address] [facility], [facility] All[facility] [address] [place] [address],[place] [address] [place] [address] 08/16/2024 13:23:13 08/16/2024 14:58:30 Perennial allergic rhinitis [id number] J30.89 27562 ABRIL WEST RN [facility] [address] [place] [address],[place] [address] [place] [address] 08/23/2024 15:15:24 08/23/2024 15:21:54 Perennial allergic rhinitis [id number] J30.89 Morbid obesity 787097338 E66.01 99198 TAWANA LUX [facility] [address] [place] [address],[place] [address] [place] [address] 08/30/2024 14:48:45 08/30/2024 15:58:02 Perennial allergic rhinitis [id number] J30.89 [id number] ABRIL WEST RN [facility] [address] [place] [address],[place] [address] [place] [address] 09/06/2024 14:30:11 09/06/2024 14:31:19 Perennial allergic rhinitis [id number] J30.89 [id number] TAWANA LUX [facility] [address] [place] [address],[place] [address] [place] [address] 09/13/2024 13:57:02 09/13/2024 14:02:12 Perennial allergic rhinitis [id number] J30.89 31016 TAWANA LXU A [facility] [address] [facility],[place] [address] [place] [address] 09/20/2024 13:28:40 09/20/2024 14:24:24 Perennial allergic rhinitis [id number] J30.89 [id number] LOUISE SANTANA MD [facility] [address] [place] [address] 09/21/2024 09:34:52 09/21/2024 10:14:56 Allergic rhinitis 84522183 J30.89 . Deviated nasal septum 12 0232971 J34.2 Nasal mucosa dry 8276878 [id number] [facility], [facility] [address] [place] [address], [place] [address] 09/27/2024 14:06:25 09/27/2024 14:39:55 Perennial allergic rhinitis [id number] J30.89 [id number] ABRIL WEST RN [facility] [address] [place] [address], [place] [address] 10/04/2024 11:32:43 10/04/2024 12:15:33 Perennial allergic rhinitis [id number] J30.89 09606 [facility] [address] [place] [address], [place] [address] 10/11/2024 14:07:36 10/11/2024 14:20:27 Perennial allergic rhinitis [id number] J30.89 [id number] TAWANA LUX [facility] [address] [place] [address], [place] [address] 10/18/2024 11:56:55 10/18/2024 12:10:20 Perennial allergic rhinitis [id number] J30.89 15419 TAWAAN LUX [facility] [address] [place] [address], [place] [address] 10/25/2024 13:23:02 10/25/2024 15:22:34 Perennial allergic rhinitis [id number] J30.89 52927 ABRIL WEST RN [facility] [address] [place] [address], [place] [address] 9 11/01/2024 14:04:52 11/01/2024 14:21:02 Perennial allergic rhinitis [id number] J30.89 59548 TAWANA LUX [facility] [address] [place] [address], [place] [address] 11/08/2024 13:33:07 11/08/2024 14:00:43 Perennial allergic rhinitis [id number] J30.[address] [facility], [facility] All[facility] [address] [place], [place] [address] [address] [place] [address] 11/15/2024 14:02:22 11/15/2024 14:32:43 Perennial allergic rhinitis [id number] J30.[address] [facility], A All[facility] [address] [place], [place] [address] [address] [place] [address] 11/22/2024 14:26:20 11/22/2024 14:33:47 Perennial allergic rhinitis [id number] J30.89 07914 ABRIL WEST RN [facility] [address] [place] [address] [address] [place] [address] 11/29/2024 13:56:34 11/29/2024 14:00:56 Perennial allergic rhinitis [id number] J30.89 85640 ABRIL WEST RN [facility] [address] [place], [place] [address] [address] [place] [address] 12/06/2024 13:39:23 12/06/2024 13:46:40 Perennial allergic rhinitis 992299704 J30.89 70820 ABRIL WEST RN [facility] [address] [place], [place] [address] [address] [place] [address] 12/13/2024 13:36:26 12/13/2024 14:12:09 Perennial allergic rhinitis [id number] J30.89 38807 ABRIL WEST RN [facility] [address] [place] [address] [address] [place] [address] 12/20/2024 13:45:10 12/20/2024 14:05:39 Perennial allergic rhinitis [id number] J30.89 05628 TAWANA LUX, [facility] [address] [place] [address] [address] [place] [address] 12/27/2024 10:40:56 12/27/2024 10:42:01 Perennial allergic rhinitis [id number] J30.89 [id number] TAWANA LUX, [facility] [address] [facility],[place] [address] [place] [address] 01/03/2025 15:09:57 01/03/2025 15:20:32 Perennial allergic rhinitis [id number] J30.89 23820 TAWANA JOSE J, [facility] [address] [facility],[place] [address] [place] [address] 01/18/2025 14:15:44 01/18/2025 14:32:50 Perennial allergic rhinitis [id number] J30.89 14750 [facility], [facility] [address] [facility],[place] [address] [place] [address] 01/24/2025 13:10:55 01/24/2025 13:23:50 Perennial allergic rhinitis [id number] J30.89 20973 ABRIL WEST RN [facility] [address] [place] [address], [address] [place] [address] 01/31/2025 13:15:35 01/31/2025 13:41:07 Perennial allergic rhinitis [id number] J30.89 33805 ABRIL WEST RN [facility] [address] [place] [address],[place] [address] [place] [address] 02/07/2025 15:10:00 02/07/2025 15:30:34 Perennial allergic rhinitis [id number] J30.89 [id number] Maude Orellana [facility] [address] [place] [address],[place] [address] [place] [address] 02/14/2025 13:24:15 02/14/2025 13:40:13 Perennial allergic rhinitis [id number] J30.[id number] [facility] All[facility] [address] [place] [address],[place] [address] [place] [address] 02/21/2025 15:22:28 02/21/2025 15:48:20 Perennial allergic rhinitis [id number] J30.89 07424 ABRIL WEST RN [facility] [address] [place] [address],[place] [address] [place] [address] 02/28/2025 14:19:34 02/28/2025 14:40:32 Perennial allergic rhinitis [id number] J30.89 [id number] CRISSY MCHUGH, RMA All[facility] 100 [facility],[place] [address] [facility] [place] [address] 03/08/2025 13:52:57 03/08/2025 14:05:11 Perennial allergic rhinitis [id number] J30.89 05787 Maude Orellana [facility] [address] [facility],[place] [address] [facility] [address] 03/14/2025 14:14:32 03/14/2025 15:15:07 Perennial allergic rhinitis [id number] J30.89 16536 CRISSY MCHUGH, RMA All[facility] 100 [facility],[place] [address] [facility] [place] [address] 03/21/2025 15:14:24 03/21/2025 15:38:26 Perennial allergic rhinitis [id number] J30.89 [id number] LOUISE SANTANA MD [facility] [address] [place] [address] 03/24/2025 10:26:52 03/24/2025 10:56:04 Deviated nasal septum 825413300 J34.2 Perennial allergic rhinitis 984163712 J30.89 474583 Morbid obesity 984481124 E66.01 Health Concerns Section Related Observation LastModified by Organization Detai ls LastModified Time None Recorded Concern Status LastModified by Organization Details LastModified Time None Recorded Advance Directives Directive None Recorded Payers Insurance Date Sequence Insurance Name Policy Number Policy Robles Covered Member ID Robles Member ID Guarantor Name 03/24/2025 1 [facility] - DOS ON OR AFTER 2022 - ONE CARE (MEDICARE REPLACEMENT/AD VANTAGE - HMO) Emily Clancy [id number] Emily Clancy 03/08/2025 1 [place] [employer] Emily Clancy [id number] Emily Petrhonda 03/24/2025 2 [place] [facility] Emily Clancy [id number] Emily Clancy Notes Date Note Type Note Provider Name and Address Organization Details Recorded Time 03/24/2025 text/html Emily Clancy is a 34-year-old female who presents for an Ear, Nose, and Throat evaluation. She has been receiving allergy injections for one year and is currently on a weekly schedule, nearing transition to every other week. She reports no use of allergy medications such as loratadine, cetirizine, or fexofenadine, nor nasal sprays. She experienced a relatively good summer with minimal need for allergy medications but continues to experience sneezing. She denies any use of sleep aids or a history of sleep apnea. She has not undergone testing for sleep apnea and does not wish to pursue it at this time. LOUISE RANDALL MD [address] [place] [address], [phone], [facility] - [facility] 03/24/2025 12:32:47 OBGyn Episode No OBEpisode recorded.
--- OUTSIDE RECORDS SUMMARY | 2025-03-27 14:11 | XMS_ITS | Continuity of Care Document ---
Author Organization [place] - [facility], [facility] Address [address] [place] [address] Assessment Encounter Date Assessment Date Assessment LastModified by Organization Details LastModified Time 03/24/2025 03/24/2025 Emily Clancy is a 34-year-old [...] Organization Details Last Modified Time Details Appointments [facility]- Allergy f-up 6mon 2025 11:30A M LOUISE SARKAR MD Not available Not available Not available Lab None recorded . Referral None recorded . Procedures None recorded . Surgeries None recorded . Imaging None recorded . Medication Orders None recorded . Patient TargetsNo targets recorded. Patient Instructions Encounter Date Encounter Id Patient Instructions Last Modified By Organization Details Last Modified Time 03/24/2025 [id number] - Continue weekly allergy injections. - Use loratadine as needed for sneezing. [email or web address] Not available 03/24/2025 10:53:17 Please note: Parts of this encounter note have been generated by AI based on audio conversation. Patient consent was required prior to utilizing this technology. Content review was required prior to finalizing the note. [email or web address] Not available 03/24/2025 10:53:17 Reason for Referral None Reported. Problems Name Problem SNOMED Code Status Onset Date Resolution Date Notes Provider Name and Address Organization Details Recorded Time Morbid obesity 037979564 Active 024 LOUISE SARKAR MD [address], [place], [address], [facility] - [facility] 4 10:37:36 Deviated nasal septum 038256365 Active 024 LOUISE SARKAR MD [address], [place], [address], [facility] - [facility] 4 10:37:43 Allergic rhinitis 79915583 Active 024 LOUISE SARKAR MD [address], [place], [address], [facility] [place] 4 10:37:49 Pain in face 52569857 Active 024 LOUISE SARKAR MD [address], [place], [address], [facility] 4 10:38:46 Perennial allergic rhinitis 027271605 Active 024 CRISSY MCHUGH, [facility] [address], [place], [address], [facility] - [facility] 5 15:14:10 Nasal mucosa dry 16519002 Active 025 LOUISE SARKAR MD [address], [place], [address], [facility] 5 10:10:37 Problem Notes None recorded. Procedures Surgical History Date Name Laterality Status Provider Name and Address Organization Details Recorded Time 03/21/20 25 Allergy Immunotherapy Injections completed TAWANA LUX, [facility] [address],[facility] [address], [place], [address], [facility] 03/21/2025 15:37:42 03/14/20 25 Allergy Immunotherapy Injections completed CRISSY MCHUGH, RMA [address], [place], [address], [place] [facility] 03/14/2025 15:14:30 03/08/20 25 Allergy Immunotherapy Injections completed CRISSY MCHUGH, RMA [address], [place], [address], [place] [facility] 03/08/2025 14:04:52 02/29/20 25 Allergy Immunotherapy Injections completed ABRIL WEST RN [address], [place], [address], [place] [facility] 02/28/2025 14:40:12 02/22/20 25 Allergy Immunotherapy Injections completed CRISSY MCHUGH, RMA [address] [facility], [place], [address], [place] [facility] 02/21/2025 15:47:53 02/15/20 25 Allergy Immunotherapy Injections completed Maude Orellana [address], [place], [address], [place] [facility] 02/14/2025 13:39:14 02/08/20 25 Allergy Immunotherapy Injections completed REBECCA SARKAR [address], [place], [address], [place] [facility] 02/07/2025 15:30:03 02/01/20 25 Allergy Immunotherapy Injections completed ABRIL WEST RN [address], [place], [address], [place] [facility] 01/31/2025 13:40:25 01/25/20 25 Allergy Immunotherapy Injections completed CRISSY MCHUGH RMA [address], [place], [address], [place] [facility] 01/24/2025 13:23:18 01/19/20 25 Allergy Immunotherapy Injections completed CRISSY MCHUGH, RMA [address], [place], [address], [place] [facility] 01/18/2025 14:32:21 01/13/20 25 Allergy Immunotherapy Injections active Maude Orellana [address], [place], [address], [place] [facility] 01/12/2025 14:51:09 01/04/20 25 Allergy Immunotherapy Injections completed TAWANA LUX, RMA [address], [place], [address], [place] [facility] 01/03/2025 15:20:01 12/28/19 25 Allergy Immunotherapy Injections completed CRISSY MCHUGH, RMA [address], [place], [address], [place] [facility] 12/27/2024 10:41:32 12/21/19 25 Allergy Immunotherapy Injections completed ABRIL WEST RN [address] [place] [address], [address], [place] [facility] 12/20/2024 14:04:55 12/14/19 25 Allergy Immunotherapy Injections completed ABRIL WEST RN [address] [place] [address], [address], [place] [facility] 12/13/2024 14:11:51 12/07/19 25 Allergy Immunotherapy Injections completed ABRIL WEST RN [address] [place] [address], [address], [place] [facility] 12/06/2024 13:46:12 11/30/19 25 Allergy Immunotherapy Injections completed ABRIL WEST RN [address] [place] [address], [address], [place] [facility] 11/29/2024 14:00:30 11/23/19 25 Allergy Immunotherapy Injections completed CRISSY MCHUGH RMA [address], [place], [address], [place] [facility] 11/22/2024 14:33:24 11/16/19 25 Allergy Immunotherapy Injections completed CRISSY MCHUGH RMA [address], [place], [address], [place] [facility] 11/15/2024 14:31:47 11/09/19 25 Allergy Immunotherapy Injections completed REBECCA SARKAR [address], [place], [address], [place] [facility] 11/08/2024 14:00:00 11/02/19 25 Allergy Immunotherapy Injections completed ABRIL WEST RN [address], [place], [address], [place] [facility] 11/01/2024 14:20:43 10/26/19 25 Allergy Immunotherapy Injections completed ABRIL WEST RN [address], [place], [address], [place] [facility] 10/25/2024 15:22:03 10/19/19 25 Allergy Immunotherapy Injections completed REBECCA SARKAR [address] [facility], [place], [address], [place] [facility] 10/18/2024 12:09:55 10/12/19 25 Allergy Immunotherapy Injections completed REBECCA HARRIS [address], [place], [address], [place] [facility] 10/11/2024 14:19:45 10/05/19 25 Allergy Immunotherapy Injections completed ABRIL WEST RN [address] [place] [address], [address], [place] [facility] 10/04/2024 12:14:45 09/28/19 25 Allergy Immunotherapy Injections completed REBECCA HARRIS [address], [place], [address], [place] [facility] 09/27/2024 14:39:23 09/21/19 25 Allergy Immunotherapy Injections completed REBECCA SARKAR [address], [place], [address], [place] [facility] 09/20/2024 14:23:32 09/14/19 25 Allergy Immunotherapy Injections completed REBECCA SARKAR [address], [place], [address], [place] [facility] 09/13/2024 14:01:28 09/07/19 25 Allergy Immunotherapy Injections completed ABRIL WEST RN [address] [place] [address], [address], [place] [facility] 09/06/2024 14:30:46 08/31/19 25 Allergy Immunotherapy Injections completed REBECCA SARKAR [address], [place], [address], [place] [facility] 08/30/2024 15:04:45 08/24/19 25 Allergy Immunotherapy Injections completed ABRIL WEST RN [address], [place], [address], [place] [facility] 08/23/2024 15:21:12 08/17/19 25 Allergy Immunotherapy Injections completed REBECCA SARKAR [address] [place] [address], [address], [place] [facility] 08/16/2024 14:57:38 08/10/19 25 Allergy Immunotherapy Injections completed REBECCA SARKAR [address] [place] [address], [address], [place] [facility] 08/09/2024 14:04:23 08/03/19 25 Allergy Immunotherapy Injections completed ABRIL WEST RN [address] [place] [address], [address], [place] [facility] 08/02/2024 13:19:03 07/26/19 25 Allergy Immunotherapy Injections completed REBECCA SARKAR [address], [place], [address], [place] [facility] 07/26/2024 13:19:38 07/19/19 25 Allergy Immunotherapy Injections completed ABRIL WEST RN [address], [place], [address], [place] [facility] 07/19/2024 14:38:48 07/12/19 25 Allergy Immunotherapy Injections completed REBECCA SARKAR [address], [place], [address], [place] [facility] 07/12/2024 11:51:11 07/05/19 25 Allergy Immunotherapy Injections completed KRISTEL SARKARA [address], [place], [address], [place] [facility] 07/05/2024 13:59:13 06/28/19 25 Allergy Immunotherapy Injections completed TAWANA LUX RMA [address], [place], [address], [place] [facility] 06/28/2024 12:00:44 06/21/19 25 Allergy Immunotherapy Injections completed CRISSY MCHUGH RMA [address], [place], [address], [place] [facility] 06/21/2024 13:05:36 06/14/19 25 Allergy Immunotherapy Injections completed TAWANA LUX RMA [address], [place], [address], [place] [facility] 06/14/2024 13:04:05 06/07/19 25 Allergy Immunotherapy Injections completed TAWANA LUX RMA [address], [place], [address], [place] [facility] 06/07/2024 13:55:02 05/31/20 24 Allergy Immunotherapy Injections completed TAWANA LUX RMA [address], [place], [address], [place] [facility] 05/31/2024 11:53:26 05/24/20 24 Allergy Immunotherapy Injections completed TAWANA LUX RMA [address], [place], [address], [place] [facility] 05/24/2024 12:01:50 05/17/20 24 Allergy Immunotherapy Injections completed TAWANA LUX RMA [address], [place], [address], [place] [facility] 05/17/2024 12:05:14 05/10/20 24 Allergy Immunotherapy Injections completed TAWANA LUX RMA [address], [place], [address], [place] [facility] 05/10/2024 13:56:16 05/03/20 24 Allergy Immunotherapy Injections completed ABRIL WEST RN [address] [place] [address], [address], [place] [facility] 05/03/2024 12:08:20 04/26/20 24 Allergy Immunotherapy Injections completed REBECCA SARKAR [address], [place], [address], [place] [facility] 04/26/2024 13:30:43 04/19/20 24 Allergy Immunotherapy Injections completed REBECCA SARKAR [address] [place] [address], [address], [place] [facility] 04/19/2024 13:36:05 04/13/20 24 Allergy Immunotherapy Injections completed REBECCA SARKAR [address] [place] [address], [address], [place] [facility] 04/13/2024 11:41:37 04/05/20 24 Allergy Immunotherapy Injections completed CRISSY MCHUGH Carla [address] [place] [address], [address], [place] [facility] 04/05/2024 11:38:45 03/28/20 24 Allergy Immunotherapy Injections completed ABRIL WEST RN [address] [place] [address], [address], [place] [facility] 03/28/2024 10:43:37 03/01/20 24 Allergy Testing-Full completed REBECCA SARKAR [address] [place] [address], [address], [place] [facility] 03/01/2024 11:37:17 cholecystectomy completed Crystal Ordaz [place] - [facility] 09/21/2024 09:45:43 Imaging Results None recorded. Procedure Notes None recorded. Medical Equipment None Reported. Allergies Allergen ID Allergen Name Allergen Category Reaction Reaction Severity Criticality Documentation Date Start Date Code Code System Note Provider Name and Address Organization Details Recorded Time 040609 oxycodone medicatio n Not available Not available Not available 03/24/2025 7804 RxNorm Crystal chacon [place] - [facility] 10:36:57 Medications Name Sig Start Date Stop [...] - [facility] 09/21/2024 09:46:04 What Type Of Digital Marketing Lead Do You Use? None [email or web address] Information not available 03/24/2025 Do You Have Any Pets? No [email or web address] Information not available 03/24/2025 Are You Passively Exposed To Smoke? No [email or web address] Information not available 03/24/2025 Are There Any Smokers In Your House? Yes [email or web address] Information not available 03/24/2025 Sex: Unknown Functional Status Question Answer Note LastModified by Organization Details LastModified Time Do you use any illicit or recreational drugs? No [email or web address] Information not available 03/24/2025 Do you or have you ever used any other forms of tobacco or nicotine? No [email or web address] Information not available 03/24/2025 What is your level of alcohol consumption? None [email or web address] Information not available 03/24/2025 What type of noise exposure are you exposed to? [email or web address] Infor mation not available 03/24/2025 Mental Status None recorded. Family History Nothing Reported. Medical History Condition Response Allergies/Hayfever N Heart Problems N Anxiety Y Tonsil Infections N Emphysema N Migraines Y Thyroid Problems N COPD N Depression Y Developmental Delay N Glaucoma N Nasal or Sinus Problems Y Anemia N Immune System Disorder N Anesthesia Complications N Heart Attack ([place]) N Other Skin Condition N Diabetes N Rhinitis N Bleeding Disorder N Food Allergy N Hearing Loss N Arthritis N Hyperlipidemia N Cancer N Stroke N Dementia N Nasal polyps N Asthma N Sleep Disorder N High Cholesterol N GERD/Reflux N Liver Disease N Headaches Y Fibromyalgia N Hypertension N Speech Delay N Kidney Disease N Gynecological HistoryNo gynecological history recorded. Obstetrics History GPAL:G 0 P 0 0 0 0 Past Encounters Encounter ID Performer Location Encounter Start Date Encounter Closed Date Diagnosis/Indication Diagnosis SNOMED-CT Code Diagnosis ICD10 Code Diagnosis IMO Codes Diagnosis Note [id number] ABRIL WEST RN Allergy [address] [place] [address] 02/28/2025 14:19:34 02/28/2025 14:40:32 Perennial allergic rhinitis 015103047 J30.89 [id number] [facility] [address] [place] [address] [place] [address] 03/08/2025 13:52:57 03/08/2025 14:05:11 Perennial allergic rhinitis 134848905 J30.89 [id number] Maude Orellana Allergy [address] [place] [address] 03/14/2025 14:14:32 03/14/2025 15:15:07 Perennial allergic rhinitis 706881117 J30.89 [id number] [facility] [address] [place] [address] [place] [address] 03/21/2025 15:14:24 03/21/2025 15:38:26 Perennial allergic rhinitis 422196847 J30.89 [id number] LOUISE SANTANA MD [facility] [address] [address] 03/24/2025 10:26:52 03/24/2025 10:56:04 Deviated nasal septum 984294190 J34.2 Perennial allergic rhinitis 117997413 J30.89 [id number] Morbid obesity 926415013 E66.01 Health Concerns Section Related Observation LastModified by Organization Detai ls LastModified Time None Recorded Concern Status LastModified by Organization Details LastModified Time None Recorded Payers Encounter Date Sequence Insurance Name Policy Number Policy Robles Covered Member ID Robles Member ID Guarantor Name 03/24/2025 1 [facility] - DOS ON OR AFTER 2022 - ONE CARE (MEDICARE REPLACEMENT/AD VANTAGE - HMO) Emily Clancy [id number] Emily Clancy 03/24/2025 2 [place] [facility] Emily Clancy [id number] Emily Clancy Notes Date Note Type Note [...] it at this time. LOUISE RANDALL MD [address] [place] [address], [phone] 03/24/2025 12:32:47 OBGyn Episode No OBEpisode recorded.
--- OUTSIDE RECORDS SUMMARY | 2025-03-27 14:11 | XMS_ITS | Data Portability ---
Author Organization MARGARET Bates s, [address] Address [address] [place] [address] Care Team Providers Care Business Improvement Manager Name Role Phone [facility] Primary Care Provide r Assessment No assessment recorded. Plan of Treatment Reminders Order Date Submit Date Provider Last Modified By Organization Details Last Modified Time Details Appointments None recorded. Lab urinalysis, dipstick 2022 023 [email or web address] 5 [facility], [address] [place], [address], 3 17:42:57 test, urine 2022 023 [email or web address] 5 [facility], [address] [place] [address], [address], 3 17:42:58 culture, urine 2022 023 [facility], [address] [place] [address], [address], 3 06:07:57 vaginal pathogens panel, JUAN ALBERTO+probe, vaginal fluid 2022 023 [facility], [address] [place] [address], [address], 3 18:06:03 urinalysis, dipstick 2022 023 [email or web address] [facility], [address] [place] [address] [place], [address], 3 11:46:12 test, urine 2022 023 [email or web address], [address] [place], [address], 3 11:46:13 culture, urine 2022 023 [place] [facility] ([facility] [place], [address], 3 20:06:13 vaginal pathogens panel, JUAN ALBERTO+probe, vaginal fluid 2022 023 [place] [facility] ([facility] [address] [place] [address], [address], 3 06:06:11 Referral emergency medicine referral [email or web address] [facility], [address] [place], [address], 3 16:41:42 Procedures None recorded. Surgeries None recorded. Imaging None recorded. Medication Orders Diflucan 150 mg tablet 2022 023 [email or web address] 5 [facility], [address] [place], [address], 3 15:45:36 Flagyl 500 mg tablet 2022 023 [email or web address] 5 [facility], [address] [place], [address], 3 15:45:57 cephalexin 500 mg capsule 2022 023 [email or web address] [facility], [address] [place], [address], 3 16:54:47 polymyxin B sulfate 10,000 unit-trimet hoprim 1 mg/mL eye drops 2022 023 [email or web address] [facility], [address] [place], [address], 3 16:54:54 fluconazole 150 mg tablet 2022 023 [email or web address] 5 [facility], [address] [place], [address], 3 15:45:36 Patient TargetsNo targets recorded. Patient Instructions Encounter Date Encounter Id Patient Instructions Last Modified By Organization Details Last Modified Time 11/14/2022 [id number] Apply warm, mois t compresses over closed eyes 3-4 times per day for 10-15 minutes at a time. Do not return to work until after using the antibiotic drops for 24 hours. If your symptoms do not improve, worsen at any time, or if intense pain, redness, or burning occurs with use of the eye drops, stop the drops immediately and go to the ER. If you wear contact lenses, do not wear them for 2 days. after symptoms resolved. If you have disposable contacts, discard the pair you were wearing and start with a new pair. If they are not disposable, clean thoroughly before using again. Not available 11/14/2022 11:43:27 We recommend you get a repeat urinalysis in 2 weeks to ensure that any abnormalities have resolved. If urine abnormalities persist, you will likely need further testing or treatment. We will contact you within 3 to 5 days with the results of your lab test. If you have not heard back from us within that time frame, please feel free to contact our office regarding your results. Go to the Emergency Department immediately if your symptoms worsen or if you develop new symptoms that concern you. Drink plenty of fluids You should follow-up with your PCP in 4-5 days, or at any time if your condition does not improve or worsens. Any acute change should prompt a visit to the nearest Emergency Department. -Reviewed the various causes of vaginal problems. Reviewed good vulvar/vaginal hygiene and ways to reduce symptoms. Advised to call if treatment is not helpful or if symptoms persist or recur. -Do not wear tight fitting clothes. Do not have sex until your symptoms are gone. Do not use Douches or other irritating products in your vagina as this can make the symptoms worse. - Use condoms for all sexual activity. - If you develop severe back pain or pelvic/abdominal with nausea, fevers, and vomiting you need to go to Emergency room immediately - I recommend complete treatment fully before engaging in intercourse, if you are waiting for a STD test I do not recommend engaging in intercourse until test results have returned. Not available 11/14/2022 11:43:40 12/30/2022 [id number] Take the medication as prescribed. Do not drink any alcohol while taking the medication. See printed instructions. You will be contacted when your lab report returns. Follow-up with your doctor if no improvement in a few days. Seek Emergency Medical evaluation for any worsening symptoms. [email or web address] Not available 12/30/2022 17:45:13 03/24/2023 [id number] You have been advised to go now to the Emergency Department for further evaluation. [facility] ER has been advised of your impending arrival and EMS transport arranged. Further evaluation, treatment and your ultimate disposition will be determined by Emergency Department staff. [email or web address] Not available 03/24/2023 16:34:22 Reason for Referral Emergency Medicine Referral for Depressive disorder Anxiety, depression with vague suicidal ideation Referring Physician: Annamaria Tai, Urgent Care, Encounter Date: 03/24/2023 Results Created Date Observation Date Name Description Value Unit Range Abnormal Flag Note LastModifiedBy Organization Detail LastModifiedTime 11/15/1911/18/2022 URINE CULTU RE, REBECCA NE urine culture, routine FINAL REPORT abnormal Not Available [facility] ([facility]) [address] [facility], [place], [address], 11/18/2022 12:06:29 11/15/19 23 11/18/2022 URINE CULTU RE, ROUTI NE result 1 ENTERO COCCUS FAECAL IS abnormal For Enter ococc us speci es, amino glyco sides (exce pt for high- level resis tance scree mac) , cepha lospo rins, clind amyci n, and trime thopr im-chatterjee lfame thoxa zole are not effec tive clini ping . (CLSI , M100- S26, 2016) 50,00 0-100 ,000 colon y formi ng units per mL Not Available [facility] ([facility]) [address] [place], [address], 11/18/2022 12:06:29 11/15/19 23 11/18/2022 URINE CULTU RE, ROUTI NE antimicrobia l susceptibili ty COMMEN T S = Susce ptibl e; I = Inter media te; R = Resis tant P = Posit sukhi; N = Negat sukhi MICS are expre ssed in micro grams per mL Antib iotic RSLT# 1 RSLT# 2 RSLT# 3 RSLT# 4 Cipro floxa alshay S Levof loxac in S Nitro furan toin S Penic illin S Tetra cycli ne S Vanco mycin S Not Available [facility] ([facility]) [address] [place], [address], 11/18/2022 12:06:29 11/15/19 23 11/16/2022 NUSWA B VAGIN ITIS PLUS (VG+) atopobium vaginae LOW - 0 score Not Available [facility] ([facility]) [address] [place], [address], 11/17/2022 06:06:11 11/15/19 23 11/16/2022 NUSWA B VAGIN ITIS PLUS (VG+) bvab 2 LOW - 0 score Not Available [facility] ([facility]) [address] [place], [address], 11/17/2022 06:06:11 11/15/19 23 11/16/2022 NUSWA B VAGIN ITIS PLUS (VG+) megasphaera 1 LOW - 0 score Calcu late total score by jose alfredo ac the 3 indiv idual bacte rial vagin osis (BV) marke r score s toget her. Total score is inter prete d as follo ws: Total score 0-1: Indic ates the absen ce of BV. Total score 2: Indet richellein ate for BV. Addit ional clini uvaldo data shoul d be evalu ated to estab juan luis a diagn osis. Total score 3-6: Indic ates the prese nce of BV. This test was devel britnied and its perfo rmanc e hussein cteri stics deter mined by [facility]. It has not been clear ed or appro belinda by the Food and Drug Admin istra tion. Not Available [facility] ([facility]) [address] [facility], [place], [address], 11/17/2022 06:06:11 11/15/19 23 11/16/2022 NUSWA B VAGIN ITIS PLUS (VG+) brianne albicans, JUAN ALBERTO POSITI VE negati ve abnormal Not Available [facility] ([facility]) [address] [place], [address], 11/17/2022 06:06:11 11/15/1911/16/2022 NUSWA B VAGIN ITIS PLUS (VG+) brianne glabrata, JUAN ALBERTO NEGATI VE negati ve Not Available [facility] ([facility]) [address] [place], [address], 11/17/2022 06:06:11 11/15/1911/16/2022 NUSWA B VAGIN ITIS PLUS (VG+) trich vag by JUAN ALBERTO NEGATI VE negati ve Not Available [facility] ([facility]) [address] [place], [address], 11/17/2022 06:06:11 11/15/19 23 11/16/2022 NUSWA B VAGIN ITIS PLUS (VG+) chlamydia trachomatis, JUAN ALBERTO NEGATI VE negati ve Not Available [facility] ([facility]) [address] [place], [address], 11/17/2022 06:06:11 11/15/19 23 11/16/2022 NUSWA B VAGIN ITIS PLUS (VG+) neisseria gonorrhoeae, JUAN ALBERTO NEGATI VE negati ve Not Available [facility] ([facility]) [address] [facility], [place], [address], 11/17/2022 06:06:11 11/15/19 23 11/14/2022 urina lysis , dipst ick Unknown Analyte Normal = light yellow Not Available [facility] [address] [place], [address], 11/14/2022 11:07:21 11/15/19 23 11/14/2022 urina lysis , dipst ick Unknown Analyte Yellow Not Available [address] [facility] [address] [place], [address], 11/14/2022 11:07:21 11/15/19 23 11/14/2022 urina lysis , dipst ick Unknown Analyte Normal = clear Not Available [facility] [address] [place], [address], 11/14/2022 11:07:21 11/15/19 23 11/14/2022 urina lysis , dipst ick Unknown Analyte Clear Not Available [address] [facility] [address] [place], [address], 11/14/2022 11:07:21 11/15/19 23 11/14/2022 urina lysis , dipst ick Unknown Analyte Normal = negati ve Not Available [facility] [address] [place], [address], 11/14/2022 11:07:21 11/15/19 23 11/14/2022 urina lysis , dipst ick Unknown Analyte Negati ve Not Available [facility] [address] [place], [address], 11/14/2022 11:07:21 11/15/19 23 11/14/2022 urina lysis , dipst ick Unknown Analyte Normal = Negati ve Not Available [facility] [address] [place], [address], 11/14/2022 11:07:21 11/15/19 23 11/14/2022 urina lysis , dipst ick Unknown Analyte Negati ve Not Available [facility] [address] [place], [address], 11/14/2022 11:07:21 11/15/19 23 11/14/2022 urina lysis , dipst ick Unknown Analyte Normal = Negati ve Not Available [facility] [address] [place], [address], 11/14/2022 11:07:21 11/15/1911/14/2022 urina lysis , dipst ick Unknown Analyte Negati ve Not Available [facility] [address] [place], [address], 11/14/2022 11:07:21 11/15/1911/14/2022 urina lysis , dipst ick Unknown Analyte Normal = 1.010, 1.015, 1.020 Not Available [facility] [address] [place], [address], 11/14/2022 11:07:21 11/15/1911/14/2022 urina lysis , dipst ick Unknown Analyte 1.025 Not Available _ [facility] [address] [place], [address], 11/14/2022 11:07:21 11/15/19 23 11/14/2022 urina lysis , dipst ick Unknown Analyte Normal = Negati ve Not Available [facility] [place], [address], 11/14/2022 11:07:21 11/15/19 23 11/14/2022 urina lysis , dipst ick Unknown Analyte Negati ve Not Available [facility] [place], [address], 11/14/2022 11:07:21 11/15/19 23 11/14/2022 urina lysis , dipst ick Unknown Analyte Normal = 6.5, 7.0, 7.5, 8.0 Not Available [facility] [address] [place], [address], 11/14/2022 11:07:21 11/15/19 23 11/14/2022 urina lysis , dipst ick Unknown Analyte 6.0 Not Available [facility] [address] [place], [address], 11/14/2022 11:07:21 11/15/19 23 11/14/2022 urina lysis , dipst ick Unknown Analyte Normal = Negati ve Not Available [facility] [address] [place], [address], 11/14/2022 11:07:21 11/15/19 23 11/14/2022 urina lysis , dipst ick Unknown Analyte Negati ve Not Available [facility] [address] [place], [address], 11/14/2022 11:07:21 11/15/19 23 11/14/2022 urina lysis , dipst ick Unknown Analyte Normal = 0.2, 1.0 Not Available [facility] [place], [address], 11/14/2022 11:07:21 11/15/19 23 11/14/2022 urina lysis , dipst ick Unknown Analyte 0.2 E.U./d L Not Available [facility] [address] [place], [address], 11/14/2022 11:07:21 11/15/19 23 11/14/2022 urina lysis , dipst ick Unknown Analyte Normal = Negati ve Not Available [facility] [address] [place], [address], 11/14/2022 11:07:21 11/15/19 23 11/14/2022 urina lysis , dipst ick Unknown Analyte Negati ve Not Available [facility] [address] [place], [address], 11/14/2022 11:07:21 11/15/19 23 11/14/2022 urina lysis , dipst ick Unknown Analyte Normal = Negati ve Not Available [facility] [address] [place], [address], 11/14/2022 11:07:21 11/15/19 23 11/14/2022 urina lysis , dipst ick Unknown Analyte Negati ve Not Available [facility] [address] [place], [address], 11/14/2022 11:07:21 11/15/19 23 11/14/2022 pregn rani test, urine Unknown Analyte Normal = Negati ve Not Available [facility] [address] [place], [address], 11/14/2022 11:07:40 11/15/19 23 11/14/2022 pregn rani test, urine Unknown Analyte negati ve Not Available [facility] [address] [place], [address], 11/14/2022 11:07:40 12/31/19 23 01/01/2023 URINE CULTU RE, ROUTI NE urine culture, routine FINAL REPORT Not Available [facility] ([facility]) [address] [facility], [place], [address], 01/01/2023 06:07:57 12/31/19 23 01/01/2023 URINE CULTU RE, ROUTI NE result 1 COMMEN T Mixed uroge nital vania 10,00 0-25, 000 colon y formi ng units per mL Not Available [facility] ([facility]) [address] [facility], [place], [address], 01/01/2023 06:07:57 12/31/19 23 01/01/2023 NUSWA B VAGIN ITIS PLUS (VG+) atopobium vaginae LOW - 0 score Not Available [facility] ([facility]) [address] [facility], [place], [address], 01/01/2023 18:06:03 12/31/19 23 01/01/2023 NUSWA B VAGIN ITIS PLUS (VG+) bvab 2 LOW - 0 score Not Available [facility] ([facility]) [address] [facility], [place], [address], 01/01/2023 18:06:03 12/31/19 23 01/01/2023 NUSWA B VAGIN ITIS PLUS (VG+) megasphaera 1 LOW - 0 score Calcu late total score by jose alfredo g the 3 indiv idual bacte rial vagin osis (BV) marke r score s toget her. Total score is inter prete d as follo ws: Total score 0-1: Indic ates the absen ce of BV. Total score 2: Indet ermin ate for BV. Addit ional clini uvaldo data shoul d be evalu ated to estab juan luis a diagn osis. Total score 3-6: Indic ates the prese nce of BV. This test was devel oped and its perfo rmanc e hussein cteri stics deter mined by [facility]. It has not been clear ed or appro belinda by the Food and Drug Admin istra tion. Not Available [facility] ([facility]) [address] [facility], [place], [address], 01/01/2023 18:06:03 12/31/19 23 01/01/2023 NUSWA B VAGIN ITIS PLUS (VG+) brianne albicans, JUAN ALBERTO NEGATI VE negati ve Not Available [facility] ([facility]) [address] [facility], [place], [address], 01/01/2023 18:06:03 12/31/19 23 01/01/2023 NUSWA B VAGIN ITIS PLUS (VG+) brianne glabrata, JUAN ALBERTO NEGATI VE negati ve Not Available [facility] ([facility]) [address] [facility], [place], [address], 01/01/2023 18:06:03 12/31/19 23 01/01/2023 NUSWA B VAGIN ITIS PLUS (VG+) trich vag by JUAN ALBERTO NEGATI VE negati ve Not Available [facility] ([facility]) [address] [facility], [place], [address], 01/01/2023 18:06:03 12/31/19 23 01/01/2023 NUSWA B VAGIN ITIS PLUS (VG+) chlamydia trachomatis, JUAN ALBERTO NEGATI VE negati ve Not Available [facility] ([facility]) [address] [place], [address], 01/01/2023 18:06:03 12/31/19 23 01/01/2023 NUSWA B VAGIN ITIS PLUS (VG+) neisseria gonorrhoeae, JUAN ALBERTO NEGATI VE negati ve Not Available [facility] ([facility]) [address] [facility], [place], [address], 01/01/2023 18:06:03 12/31/19 23 12/30/2022 urina lysis , dipst ick Unknown Analyte Normal = light yellow Not Available [facility] [address] [place], [address], 12/30/2022 16:57:06 12/31/19 23 12/30/2022 urina lysis , dipst ick Unknown Analyte Yellow Not Available [address] [place] [address] [address] [place], [address], 12/30/2022 16:57:06 12/31/19 23 12/30/2022 urina lysis , dipst ick Unknown Analyte Normal = clear Not Available [facility] [address] [place], [address], 12/30/2022 16:57:06 12/31/19 23 12/30/2022 urina lysis , dipst ick Unknown Analyte Clear Not Available [id number] [place] [address] [address] [place], [address], 12/30/2022 16:57:06 12/31/19 23 12/30/2022 urina lysis , dipst ick Unknown Analyte Normal = negati ve Not Available [facility] [address] [place], [address], 12/30/2022 16:57:06 12/31/19 23 12/30/2022 urina lysis , dipst ick Unknown Analyte Negati ve Not Available [facility] [address] [place], [address], 12/30/2022 16:57:06 12/31/19 23 12/30/2022 urina lysis , dipst ick Unknown Analyte Normal = Negati ve Not Available [facility] [address] [place], [address], 12/30/2022 16:57:06 12/31/19 23 12/30/2022 urina lysis , dipst ick Unknown Analyte Small Not Available [facility] [address] [place], [address], 12/30/2022 16:57:06 12/31/19 23 12/30/2022 urina lysis , dipst ick Unknown Analyte Normal = Negati ve Not Available [facility] [address] [place], [address], 12/30/2022 16:57:06 12/31/19 23 12/30/2022 urina lysis , dipst ick Unknown Analyte Trace Not Available [facility] [address] [place], [address], 12/30/2022 16:57:06 12/31/19 23 12/30/2022 urina lysis , dipst ick Unknown Analyte Normal = 1.010, 1.015, 1.020 Not Available [facility] [address] [place], [address], 12/30/2022 16:57:06 12/31/19 23 12/30/2022 urina lysis , dipst ick Unknown Analyte 1.[address] [facility] [address] [place], [address], 12/30/2022 16:57:06 12/31/19 23 12/30/2022 urina lysis , dipst ick Unknown Analyte Normal = Negati ve Not Available [facility] [address] [place], [address], 12/30/2022 16:57:06 12/31/19 23 12/30/2022 urina lysis , dipst ick Unknown Analyte Trace- intact Not Available [facility] [address] [place], [address], 12/30/2022 16:57:06 12/31/19 23 12/30/2022 urina lysis , dipst ick Unknown Analyte Normal = 6.5, 7.0, 7.5, 8.0 Not Available [facility] [address] [place], [address], 12/30/2022 16:57:06 12/31/19 23 12/30/2022 urina lysis , dipst ick Unknown Analyte 5.[address] [facility] [address] [place], [address], 12/30/2022 16:57:06 12/31/19 23 12/30/2022 urina lysis , dipst ick Unknown Analyte Normal = Negati ve Not Available [facility] [address] [place], [address], 12/30/2022 16:57:06 12/31/19 23 12/30/2022 urina lysis , dipst ick Unknown Analyte 100 mg/dL Not Available [facility] [address] [place], [address], 12/30/2022 16:57:06 12/31/19 23 12/30/2022 urina lysis , dipst ick Unknown Analyte Normal = 0.2, 1.0 Not Available [facility] [address] [place], [address], 12/30/2022 16:57:06 12/31/19 23 12/30/2022 urina lysis , dipst ick Unknown Analyte 0.2 E.U./d L Not Available [facility] [address] [place], [address], 12/30/2022 16:57:06 12/31/19 23 12/30/2022 urina lysis , dipst ick Unknown Analyte Normal = Negati ve Not Available [facility] [address] [place], [address], 12/30/2022 16:57:06 12/31/19 23 12/30/2022 urina lysis , dipst ick Unknown Analyte Negati ve Not Available [facility] [address] [place], [address], 12/30/2022 16:57:06 12/31/19 23 12/30/2022 urina lysis , dipst ick Unknown Analyte Normal = Negati ve Not Available [facility] [address] [place], [address], 12/30/2022 16:57:06 12/31/19 23 12/30/2022 urina lysis , dipst ick Unknown Analyte Negati ve Not Available [facility] [address] [place], [address], 12/30/2022 16:57:06 12/31/19 23 12/30/2022 pregn rani test, urine Unknown Analyte negati ve Not Available [facility] [address] [place], [address], 12/30/2022 17:06:31 Result Notes None recorded. Problems Name Problem SNOMED Code Status Onset Date Resolution Date Notes Provider Name and Address Organization Details Recorded Time Anxiety 57553082 Active HEATHER chacon PA - [facility] 3 11:06:26 Gastroesophage al reflux disease 922881681 Active 2022 HEATHER chacon PA - [facility] 3 11:06:34 Problem Notes None recorded. Procedures Surgical History Date Name Laterality Status Provider Name and Address Organization Details Recorded Time cholecystectomy completed HEATHER YU PA - [facility] 11/14/2022 11:06:06 Imaging Results None recorded. Procedure Notes None recorded. Medical Equipment None Reported. Allergies Allergen ID Allergen Name Allergen Category Reaction Reaction Severity Criticality Documentation Date Start Date Code Code System Note Provider Name and Address Organization Details Recorded Time 142711 Macrobid medicatio n vomiting Not available Not available 11/14/2022 93566 1 RxNorm MARGARET Dillon RA - [facility] 3 11:03:47 Medications Name Sig Start Date Stop Date Status Note LastModified by Organization Details LastModified Time buspirone 5 mg tablet TAKE 1 TABLET BY MOUTH THREE TIMES DAILY active Not Available Not Available No t Available venlafaxine ER 37.5 mg capsule,ext ended release 24 hr 03/24 completed Not Available Not Available Not Available clonidine HCl 0.1 mg tablet active Not Available Not Available Not Available venlafaxine ER 75 mg capsule,ext ended release 24 hr active Not Available Not Available Not Available Apri 0.15 mg-0.03 mg tablet 11/14 completed Not Available Not Available Not Available azithromyci n 250 mg tablet 11/14 completed Not Available Not Available Not Available ibuprofen 800 mg tablet 11/14 completed Not Available Not Available Not Available fluconazole 150 mg tablet Take 1 tablet every day by oral route for 1 day. 03/24 completed Not Available Not Available Not Available sulfamethox azole 400 mg-trimetho prim 80 mg tablet 11/14 completed Not Available Not Available Not Available valacyclovi r 1 gram tablet 11/14 completed Not Available Not Available Not Available sumatriptan 25 mg tablet active Not Available Not Available Not Available prednisone 20 mg tablet 11/14 completed Not Available Not Available Not Available metronidazo le 500 mg tablet Take 1 tablet twice a day by oral route for 7 days. 03/24 completed Not Available Not Available Not Available valacyclovi r 500 mg tablet 11/14 completed Not Available Not Available Not Available ciprofloxac in 500 mg tablet 11/14 completed Not Available Not Available Not Available sulfamethox azole 800 mg-trimetho prim 160 mg tablet 11/14 completed Not Available Not Available Not Available omeprazole 40 mg capsule,del ayed release active Not Available Not Available Not Available lidocaine-p rilocaine 2.5 %-2.5 % topical cream 11/14 completed Not Available Not Available Not Available amoxicillin 875 mg tablet Take 1 tablet every 12 hours by oral route for 7 days. 12/30 completed Not Available Not Available Not Available lorazepam 0.5 mg tablet active Not Available Not Available Not Available cephalexin 500 mg capsule Take 1 capsule every 8 hours by oral route with meals for 7 days. 12/30 completed Not Available Not Available Not Available clotrimazol e-betametha sone 1 %-0.05 % topical cream 11/14 completed Not Available Not Available Not Available polymyxin B sulfate 10,000 unit-trimet hoprim 1 mg/mL eye drops INSTILL 1 DROP INTO AFFECTED EYE(S) BY OPHTHALMI C ROUTE EVERY 6 HOURS x 7 days. 12/30 completed Not Available Not Available Not Available lorazepam 1 mg tablet TAKE 1/2- 1 TABLET BY MOUTH DIRECTED NEEDED ON SOME DAYS FOR ANXIETY OR INSOMNIA. 03/24 completed Not Available Not Available Not Available norethindro ne (contracept sukhi) 0.35 mg tablet TAKE 1 TABLET BY MOUTH EVERY DAY 11/14 completed Not Available Not Available Not Available propranolol 20 mg tablet TAKE 2 TABLETS BY MOUTH ONCE DAILY IF NEEDED. TAKE 30-60 MINUTES PRIOR TO PUBLIC ENGAGEMEN T. active Not Available Not Available No t Available betamethaso ne dipropionat e 0.05 % topical ointment 11/14 completed Not Available Not Available Not Available fluticasone propionate 50 mcg/actuati on nasal spray,suspe nsion 11/14 completed Not Available Not Available Not Available clotrimazol e 1 % topical cream 11/14 completed Not Available Not Available Not Available metoclopram eliseo 10 mg tablet TAKE 1 TABLET BY MOUTH EVERY 6 HOURS 11/14 completed Not Available Not Available Not Available escitalopra m 10 mg tablet active Not Available Not Available Not Available Miconazole- 3 200 mg-2 % (9 gram) vaginal kit USE DIRECTED VAGINALLY DAILY FOR 3 DAYS 11/14 completed Not Available Not Available Not Available lidocaine 5 % topical ointment 11/14 completed Not Available Not Available Not Available Xulane 150 mcg-35 mcg/24 hr transdermal patch APPLY 1 PATCH TOPICALLY TO THE SKIN EVERY WEEK active Not Available Not Available No t Available Vitals Date Recorded Body height Body mass index (BMI) Body weight Pain severity - 0-10 verbal numeric rating [Score] - Reported Respiratory rate Oxygen saturation Oxygen saturation in Arterial blood by Pulse oximetry Heart rate Body temperature Systolic And Diastolic Provider Name and Address Organization Details Last Updated DateTime 3 162.56 cm 48.1 kg/m2 145651. 86 g 6 18 /min 99 % 99 % 76 /min 98.6 [degF] 114/78 mm[Hg] HEATHER ENRIQUEZ RA PA - [facility] 3 11:10:02 Date Recorded Body height Body mass index (BMI) Body weight Pain severity - 0-10 verbal numeric rating [Score] - Reported Body temperature Respiratory rate Heart rate Oxygen saturation Oxygen saturation in Arterial blood by Pulse oximetry Systolic And Diastolic Provider Name and Address Organization Details Last Updated DateTime 3 162.56 cm 48.1 kg/m2 726956. 86 g 8 97.9 [degF] 18 /min 96 /min 96 % 96 % 128/84 mm[Hg] Fatou Sena PA - [facility] 3 16:56:58 Date Recorded Body height Body mass index (BMI) Body weight Oxygen saturation Oxygen saturation in Arterial blood by Pulse oximetry Heart rate Respiratory rate Body temperature Systolic And Diastolic Provider Name and Address Organization Details Last Updated DateTime 3 162.56 cm 46.9 kg/m2 865747. 72 g 99 % 99 % 108 /min 16 /min 98.1 [degF] 123/84 mm[Hg] Trish Banuelos PA - [facility] 3 15:43:57 Social History Question Answer Notes LastModified by Organizat ion Details LastModified Time Tobacco Smoking Status Never Smoker HEATHER chacon PA - [facility] 11/14/2022 11:06:54 Have You Had A Flu Shot This Season? Yes Information not available 03/24/2023 Have You Had Direct Contact, Or Contact During Intimacy, With Monkeypox Rash, Scabs, Or Body Fluids From A Person With Monkeypox? No Information not available 11/14/2022 What Was The Date Of Your Most Recent Tobacco Screening? 03/24/2023 Information not available 03/24/2023 Have You Recently Traveled Abroad? No Information not available 11/14/2022 Sex: Unknown Functional Status Question Answer Note LastModified by Organizat ion Details LastModified Time Do you use any illicit or recreational drugs? No Information not available 11/14/2022 Do you or have you ever used any other forms of tobacco or nicotine? No Information not available 11/14/2022 What is your level of alcohol consumption? None Information not available 11/14/2022 Mental Status None recorded. Family History Relationship Description Onset Age of this Age Resolved Age Notes LastModified by Organization Details LastModified Time Father No current problems or disability Not available 11:06:38 Mother No current problems or disability Not available 11:06:38 Medical History No medical history recorded. Gynecological History Statement/Question Response Date of LMP 12/07/2022 Is there any chance of ? No LMP Unknown Obstetrics History GPAL:G 0 P 0 0 0 0 Immunizations Vaccine Type Date Status Note Provider Nam e and Address Organization Details Recorded Time COVID-19, mRNA, LNP-S, PF, 100 mcg/0.5mL dose or 50 mcg/0.25mL dose 07/27/2020 completed HEATHER YU null, PA - [facility] 11/14/2022 11:02:33 COVID-19, mRNA, LNP-S, PF, 100 mcg/0.5mL dose or 50 mcg/0.25mL dose 08/23/2020 completed HEATHER YU null, PA - [facility] 11/14/2022 11:02:33 COVID-19, mRNA, LNP-S, PF, 100 mcg/0.5mL dose or 50 mcg/0.25mL dose 04/01/2021 completed HEATHER YU null, PA - [facility] 11/14/2022 11:02:33 COVID-19, mRNA, LNP-S, PF, 100 mcg/0.5mL dose or 50 mcg/0.25mL dose 04/26/2021 completed HEATHER GARNER-ALVA null, PA - [facility] 11/14/2022 11:02:33 COVID-19, mRNA, LNP-S, bivalent, PF, 50 mcg/0.5 mL or 25mcg/0.25 mL dose 02/20/2022 completed HEATHER GARNER-ALVA null, PA - [facility] 11/14/2022 11:02:33 Influenza, split virus, quadrivalent, PF 02/01/2022 completed HEATHER GARNER-ALVA null, PA - [facility] 11/14/2022 11:02:33 Influenza, split virus, quadrivalent, PF 02/03/2020 completed HEATHER GARNER-ALVA null, PA - [facility] 11/14/2022 11:02:33 Influenza, split virus, quadrivalent, PF 02/05/2021 completed Fatou Sena null, PA - [facility] 12/30/2022 16:54:35 Influenza, split virus, quadrivalent, PF 02/05/2021 completed HEATHER GARNER-ALVA null, PA - [facility] 11/14/2022 11:02:33 Influenza, split virus, quadrivalent, PF 02/05/2021 completed HEATHER GARNER-ALVA null, PA - [facility] 11/14/2022 11:02:33 Influenza, split virus, quadrivalent, PF 02/05/2021 completed HEATHER GARNER-ALVA null, PA - [facility] 11/14/2022 11:02:33 Influenza, split virus, quadrivalent, PF 02/05/2021 completed Fatou Sena null, PA - [facility] 12/30/2022 16:54:35 Influenza, split virus, quadrivalent, PF 02/05/2021 completed Fatou Sena null, PA - [facility] 12/30/2022 16:54:35 Past Encounters Encounter ID Performer Location Encounter Start Date Encounter Closed Date Diagnosis/Indication Diagnosis SNOMED-CT Code Diagnosis ICD10 Code Diagnosis IMO Codes Diagnosis Note [id number] [facility] [place] [address] 01/13/2018 09:13:08 01/13/2018 09:51:05 [id number] [address] [facility] [address] 03/12/2015 11:50:40 03/12/2015 12:13:22 [id number] [address] [facility] [address] 01/22/2017 11:18:50 01/22/2017 12:02:39 [id number] [address] [facility] [address] 02/24/2018 11:21:15 02/24/2018 12:56:20 [id number] [address] [facility] [place] [address] 02/18/2019 13:36:29 02/18/2019 14:27:00 [id number] [address] [facility] [place] [address] 03/16/2017 09:54:50 03/16/2017 10:11:55 [id number] [address] [facility] [place] [address] 12/29/2018 09:36:33 12/29/2018 09:56:56 [id number] [address] [facility] [place] [address] 05/26/2018 10:33:05 05/26/2018 12:02:51 [id number] [address] [facility] [place] [address] 06/03/2019 09:01:02 06/03/2019 10:02:44 [id number] [address] [facility] [place] [address] 12/10/2016 09:15:34 12/10/2016 09:53:33 [id number] [address] [facility] [place] [address] 02/24/2018 11:16:10 02/24/2018 12:56:10 [id number] [address] [facility] [place] [address] 09/26/2020 09:45:32 09/26/2020 12:03:38 [id number] [address] [facility], [place] [address] 10/16/2017 12:45:48 10/16/2017 13:55:47 [id number] [address] [facility] [place] [address] 01/13/2022 10:49:13 01/13/2022 11:34:42 [id number] [address] [facility] [place] [address] 08/19/2018 12:20:58 08/19/2018 13:26:06 [id number] [address] [facility] [place] [address] 01/31/2022 09:29:07 01/31/2022 11:14:12 [id number] [address] [facility] [place] [address] 01/14/2019 09:19:36 01/14/2019 10:42:10 [id number] [address] [place] [address] 04/20/2019 13:07:13 04/20/2019 13:34:02 [id number] Fredrick Stephens NP [address] [place] [address] 11/14/2022 10:49:07 11/14/2022 11:47:20 Acute urinary tract infection 212342206 N39.0 Acute vaginitis 48623940 N76.0 Acute conj unctivitis of right eye 2212339171 38507 H10.31 patient strongly encouraged to follow up with ophthalmol ogist if has no improvemen t in next 3 days. [id number] Annamaria Tai MD [address] [place] [address] 12/30/2022 16:47:44 12/30/2022 17:51:54 Acute vaginitis 31757605 N76.0 [id number] [facility]namaria [facility] MD [facility] [address] [place] [address] 03/24/2023 15:18:35 03/24/2023 16:41:42 Depressive disorder 26473685 F32.A Health Concerns Section Related Observation LastModified by Organization Detai ls LastModified Time None Recorded Concern Status LastModified by Organization Details LastModified Time None Recorded Advance Directives Directive None Recorded Payers Insurance Date Sequence Insurance Name Policy Number Policy Robles Covered Member ID Robles Member ID Guarantor Name 09/24/2023 PROMPT PAY Re levy S Petlock 09/24/2023 1 [place] [employer] Emily S Petlock [id number] Emily S Petlock 09/24/2023 1 [place] [facility] Emily S Petlock [id number] Emily S Petlock Notes Date Note Type Note Provider Name and Address Organization Details Recorded Time 11/14/2022 text/html Eye problemsRepo rted by PatientHPIFor eye symptoms, patient reportssensitivity to light,discharge, andwatery. For location, patient reportsright. For severity, patient reportsmild. For onset/timing, patient [id number]. For context, patient reportsallergies. For modifying factors, patient reportsnothing gives relief. For lynne aggravating factors, patient reportsbright light makes it worse. For lynne alleviating factors, patient reportsnothing helps. Urinary / Rod Puller Problems-FemaleReported by PatientGU ProblemsFor quality, patient reportsdull. For onset/timing, patient reportsworsebut reportssudden. For context, patient reportssexually activebut reportsno sexual dysfunction,no prior history of stds, andvaginal intercourse. For associated symptoms, patient reportswhite vaginal dischargebut reportsno flank pain,no jaundice,no blood in the urine,no pain during urination, andno urgency. For source of patient information, patient reportsinformation obtained from patient,patient arrived at urgent care ambulatory, andlearning styles: auditory. For location, patient reportsvaginal. For severity, patient reportsmild. For duration, patient reportsstarted:. For modifying factors, patient reportsnothing gives relief. Fredrick Stephens NP [address] [facility], [address], PA - [facility] 11/14/2022 11:46:53 12/30/2022 text/html Urinary / Rod Puller Problems-FemaleReported by PatientGU ProblemsFor quality, patient reportsitching. For onset/timing, patient reportsworsebut reportsgradual. For associated symptoms, patient reportswhite vaginal dischargebut reportsno flank pain,no jaundice,no blood in the urine,no pain during urination, andno urgency(vaginal odor.). For source of patient information, patient reportsinformation obtained from patientandpatient arrived at urgent care ambulatory. For location, patient reportsvaginal. For severity, patient reportsmoderate. For duration, patient reportsconstant(3 days.). For modifying factors, patient reportsnothing gives relief. For context, (history of vaginal yeast infections and bv infections in the past.).32 year old female presenting for evaluation of vaginal itching with a white vaginal discharge and vaginal odor getting worse for the past 3 days. She has had vaginal yeast infections and BV infections in the past. No fever, chills, nausea, vomiting, diarrhea, abdominal/pelvic/flank pain, dysuria, urinary frequency or urgency, vaginal bleeding. She does not believe she is and has low suspicion for a STI. Annamaria Tai MD [address] [place], [address], [place] - [facility] 01/03/2023 08:35:15 03/24/2023 text/html Anxiety / DepressionReported by PatientHPIFor quality, patient reportsmood worseandincreased anxiety. For severity, patient reportsno desire to continue living,interference with household activities, andinterference with sleep(vague suicidal ideation without specific plan.). For context, patient reportsmajor life stressors,bereavement, andpoor sleep. For associated symptoms, patient reportsanxiety,depressi on,grieving,sleep disturbances,feeling guilty, anddespair/hopelessness but reportsdenies homicidal ideations,no significant weight gain,no significant weight loss,no visual/auditory hallucinations,no delusions, andno shortness of breath. For source of patient information, patient reportspatientandpatien t arrived at urgent care ambulatory. For duration, (1 week since of mother.). For onset/timing, (has some chronic anxiety and depression - exacerbated by sudden of her mother one week ago.). For modifying factors, (none.).32 year old female with hx of anxiety and depression presenting for evaluation of worsening anxiety and depression since the sudden of her mother one week ago. The patient has an unspecified mental disability which required her mother to be her legal guardian. The patient witnessed her mother collapse from a cardiac arrest at home one week ago and has had significant anxiety and worsening depression since. She has some vague suicidal ideation and has posted some disturbing comments on social media per her and her father's report. At present she does not admit to any specific plan but is somewhat evasive when questioned about this. She has had trouble sleeping and feels some guilt about her mother's ? due to a delayed 911 call. No hx of substance abuse. No apparent homicidal ideation. No report of visual or auditory hallucinations. The patient currently does not have a psychiatrist. She also apparently does not currently have a legal guardian though her father is with her at present. Annamaria Tai MD [address] [place], [address], [place] - [facility] 03/26/2023 15:59:05 OBGyn Episode No OBEpisode recorded.
[2025-03-27 14:12] LABS: MANUAL DIFF FLAG NO
[2025-03-27 14:21] LABS: Hematocrit 40.8 % (37.0-47.0); Hemoglobin 12.9 g/dl (12.0-16.0); Imm Gran Abs Auto 0.02 X10*3/uL (0.00-0.03); Imm Gran Pct Auto 0.2 % (0.0-0.4); Lymphocytes Absolute Auto 1.9 X10*3/uL (1.2-4.9); Mean Corpuscular HGB Conc 31.6 g/dl (31.0-35.0); Mean Corpuscular Hemoglobin 26.5 pg (27.0-33.0); Mean Corpuscular Volume 84.0 fL (80.0-98.0); NRBC Abs Auto 0.000 X10*3/uL (0.0-0.012); NRBC Pct Auto 0.0 /100WBC (0.0-0.2); Platelet Count 411 X10*3/uL (160-400); Red Blood Count 4.86 X10*6/uL (4.20-5.50); White Blood Count 8.5 X10*3/uL (4.8-10.8)
[2025-03-27 14:58] LABS: Alanine Aminotransferase 15 U/L (0-31); Albumin Level 4.3 g/dL (3.5-5.0); Alkaline Phosphatase 76 U/L (39-117); Anion Gap 12 (12-20); Aspartate Amino Transferase 20 U/L (5-31); Blood Urea Nitrogen 14 mg/dL (9-16); Calcium 8.8 mg/dL (8.4-10.2); Carbon Dioxide 28 mmol/L (22-29); Chloride 102 mmol/L (96-108); Cholesterol 212 mg/dL (<200); Estimated Glomerular Filt Rate > 60; HDL Cholesterol 60 mg/dL (>40); Potassium 4.3 mmol/L (3.3-5.1); Sodium 138 mmol/L (135-145); Total Protein 7.3 g/dL (6.5-8.0); Triglycerides 120 mg/dL (<150)
[2025-03-27 15:18] LABS: Folate 5.0 ng/mL (> or = 4.0); Vitamin B12 256 pg/mL (200-900)
[2025-03-28 09:29] LABS: Lyme Abs Screen <0.90 index
== END 2025-03-27 10:08 | disposition home or self-care (01) ==
LOC: HO.WFDLDS 10:07
PROVIDERS: PCP Internal Medicine; Visit Provider Internal Medicine
DX: Z00.00 Encounter for general adult medical examination without abnormal findings (principal); R53.83 Other fatigue; F09 Unspecified mental disorder due to known physiological condition; F41.9 Anxiety disorder, unspecified; F32.A Depression, unspecified
CPT/HCPCS: 36415; 80053; 80061; 82607; 82746; 83036; 84443; 85025; 86617; 86618; 87086; 99395

== ENCOUNTER 2025-03-27 10:07 | Outpatient (AMB) | payer OTHER, SELFPAY ==
--- NOTE | 2025-03-27 10:14 | MHC.PC.OV ---
Intake Visit Reasons: Physical Intake Note: physical Allergies No Known Allergies Allergy (Verified 03/27/25 10:19) Tobacco use date assessed: 09/27/24 Dental Screening Dental Screen Date: 09/27/24 HPI HPI Comments History of Present Illness Details 34 year old female with a past medical history of cognitive impairment, depression, anxiety, insomnia, recurrent sinus issues, allergies presenting for CPE BH: Her mother in 2022. This resulted in a great amount of ptsd, grief thereafter. Following with therapist at [facility], Felicita Hogan. Reports stable on current medications. Has not tolerated or had ineffective response to multiple psych medications. She moved back from [place] where she was living with her boyfriend and his 15 year old son. Her step father who has been taking care of her since her mother passed has paperwork for DDS. She follows with [facility] in [place]. She is on OCP. received flu vaccine ROS CONSTITUTIONAL: Endorses some fatigue HEENT: Denies changes in vision and hearing. RESPIRATORY: Denies SOB and cough. CV: Denies palpitations and CP GI: Denies abdominal pain, nausea, vomiting and diarrhea. : Denies dysuria and urinary frequency. MSK: Denies new myalgia and joint pain. SKIN: bug bite foot NEUROLOGICAL: Denies headache PSYCHIATRIC: Denies recent changes in mood. PHYSICAL EXAM: GENERAL: Alert and oriented x 3. NAD EYES: EOMI. Anicteric. HENT: Moist mucous membranes. No scleral icterus. No cervical lymphadenopathy. LUNGS: Clear to auscultation bilaterally. CARDIOVASCULAR: Regular rate and rhythm. No murmur. No JVD. ABDOMEN: Soft, non-tender +bs EXTREMITIES: No edema. Non-tender. SKIN: small insect bite without surrounding erythema or warmgth right foot. NEUROLOGIC: No focal neurological deficits. CN II-XII grossly intact PSYCHIATRIC: Cooperative. Appropriate mood and affect. [facility] Medical History Depression Panic attack GERD (gastroesophageal reflux disease) Headache Sinusitis Anxiety Surgical History Hx of cholecystectomy Family History Mother HTN (hypertension) Hypercholesteremia Father Hypercholesteremia Paternal Grandmother Hypercholesteremia Other Prediabetes Social History Housing: House Alcohol intake: current Patient Tobacco Use Status: Never used Tobacco e-Cigarette/Vaping Use: Never Used Second Hand Smoke Exposure: No service: No Current occupational status: unemployed Cognitive needs: No Hearing needs: No Vision needs: Yes Questionnaire Thrive Questionnaire Date Thrive assessed: 08/23/24 I am a: Patient What is your living situation today?: I have a steady place to live Within the past 12 months, did the food you bought not last and you didn't have the money to get more?: I choose not to answer this question Within the past 12 months, did you worry whether your food would run out before you got money to buy more?: Often true Do you have trouble paying for medicines?: No Do you have trouble getting transportation to medical appointments?: I choose not to answer this question Do you have trouble paying your heating and electricity bill?: No Do you have trouble taking care of your child, family member or friend?: No Do you have trouble with day-to-day activities such as bathing, preparing meals, shopping, managing finances, etc.?: No Are you currently unemployed and looking for a job?: Yes Are you interested in more education?: No Please select the resources that you would like help with: Job search/training Currently or been in a relationship where the following occur: No concerns reported THRIVE Score: 1 CHIARA-7 AMB Questionnaire CHIARA-7 Date CHIARA - 7 assessed: 09/27/24 Source: Developed by Drs. Wilson Hernández, Tammy Sierra, João Shi and colleagues, with an educational antoine from [employer]. Physical exam (Primary Care) Tobacco/Smoking Status: Tobacco use Status Tobacco use date assessed 09/27/24 03/27/25 10:17 Patient Tobacco Use Status Never used Tobacco 03/27/25 10:17 e-Cigarette/Vaping Use Never Used 03/27/25 10:17 Thrive Assessment: Date of Thrive Assessment Date Thrive assessed 08/23/24 03/27/25 10:17 Currently or been in a relationship where the following occur: No concerns reported Coding Level of Care Code Est Pt Prev Care 18-39y(96977) Diagnoses Physical exam Z00.00 Anxiety F41.9 Depression, unspecified depression type F32.A Depression Type: unspecified Fatigue, unspecified type R53.83 Fatigue type: unspecified Assessment & Plan Assessment & Plan (1) Physical exam: Code(s): Z00.00 - Encounter for general adult medical examination without abnormal findings (2) Anxiety: Code(s): F41.9 - Anxiety disorder, unspecified Category: Medical (3) Depression: Code(s): F32.A - Depression, unspecified Category: Medical Qualifiers: Depression Type: unspecified Qualified Code(s): F32.A - Depression, unspecified (4) Fatigue: Code(s): R53.83 - Other fatigue Category: Medical Qualifiers: Fatigue type: unspecified Qualified Code(s): R53.83 - Other fatigue Plan 34 year old for CPE Interval history reviewed Preventive measures for age discussed.Tells me she is utd with obgyn Fatigue, routine labs ordered Depression stable managed by Follow up one year CPE Orders: Orders Vitamin B12 and Folate Today R53.83 - Other fatigue Lyme IgG/IgM w/reflex to WB Today R53.83 - Other fatigue Urine Culture Today R53.83 - Other fatigue
--- OUTSIDE RECORDS SUMMARY | 2025-03-27 12:12 | XMS_ITS | Clinical Summary ---
Author Organization Formerly [facility] Address [address] [place] [address] Care Team Providers Care Interior Block Wirer Name Role Phone Pcp, No Primary Care Provider Unavailabl e Allergies Active Allergy Reactions Criticality Noted Date Comments Oxycodone-Acetaminophen GI Intolerance/Nausea/Vomiting Low 08/13/2022 Medications LORazepam (ATIVAN) 0.5 MG tablet lorazepam 0.5 mg tablet Active Zafemy 150-35 MCG/24HR Active Social History Tobacco Use Types Packs/Day Years Used Date Smoking Tobacco: Never Assessed Comments Unknown Sex and Gender Information Value Date Recorded Sex Assigned at Female 08/13/2022 8:56 PM EDT Legal Sex Female 4:03 PM EDT Gender Identity Female 08/13/2022 8:56 PM EDT Sexual Orientation Heterosexual (straight) 08/13 8:56 PM EDT Last Filed Vital Signs Vital Sign Reading Time Taken Comments Blood Pressure 115/84 08/14/2022 1:15 AM EDT Pulse 103 08/14/2022 1:15 AM EDT Temperature 36.9 C (98.4 F) 08/14/2022 12:01 AM EDT Respiratory Rate 18 08/14/2022 1:15 AM EDT Oxygen Saturation 99% 08/14/2022 1:15 AM EDT Inhaled Oxygen Concentration - - Weight 132 kg (290 lb) 08/13/2022 8:16 PM EDT Height 162.6 cm (5' 4 ) 08/13/2022 8:16 PM EDT Body Mass Index 49.78 08/13/2022 8:16 PM EDT Plan of Treatment Health Maintenance Due Date Last Done Comments Hepatitis C Virus Screening 1988 HIV Screening 2001 DTaP/Tdap/Td Vaccines (1 - Tdap) 2007 Hepatitis B Vaccines (1 of 3 - 19+ 3-dose series) 2007 Pap Smear (Ages 21-65) 2009 Influenza Vaccine 12/30/2024 02/01/2022, , 02/03/2020 COVID-19 Vaccine ( season) 2025 04/26/2021, 04/01/2021, 08/23/2020, Additional history exists HPV Vaccines (No Doses Required) Completed Pneumococcal Vaccine: Pediatric (0-5 Years) and At-Risk Patients (6 to 49 Years) Aged Out No longer eligible based on patient's age to complete this topic Insurance MEDICARE PART A & B [id number] MEDICARE PART A & B MEDICAID [facility] Member Subscriber Plan / Payer (Ef fective for All Dates) Name:Emily Clancy Relation to Subscriber:Self Name:Emily Clancy Payer ID:Not on file Group ID:Not on file Type:Not on file [facility] Care Teams Interior Block Wirer Relationship Specialty Start Date End Date Pcp, No PCP - General General Medicine 08/13/22
--- OUTSIDE RECORDS SUMMARY | 2025-03-27 12:12 | XMS_ITS ---
Author Name [facility] Organization Unknown History of Medication Use Medication Directions Dispensed Refills Start Date End Date Stat Zafemy 150-35 MCG/24HR 07/31/2022 active LORazepam (ATIVAN) 0.5 MG tablet lorazepam 0.5 mg tablet active Problems Problem Status Onset Date Problem Type Date of Resoluti on Source Leg swelling active EncounterDiagnosisAct CCT Ab[facility] cr[facility] En[facility] Encounter Type Encounter Reason Primary Diagnosis Location Date Emergency Fecal impaction formerly [facility] EXTENDED STAYS 08/13/2022 Ambulatory Unspecified abdo mann pain [facility] 08/13/2022 Care Team Organization Name Specialty Phone Email Start Date End Da te [facility] PCP,No Primary Care 08/14/2022 [facility] NO PCP Primary Care 08/13/2022 08/13/2022
== END 2025-03-27 10:52 | disposition home or self-care (01) ==
LOC: HO.HMCFM 10:08
PROVIDERS: PCP Internal Medicine; Visit Provider Internal Medicine
DX: Z00.00 Encounter for general adult medical examination without abnormal findings (principal); F41.9 Anxiety disorder, unspecified; F32.A Depression, unspecified; R53.83 Other fatigue